=== PATIENT | female | born 1990 | race African-American/Black ===

== ENCOUNTER 2018-06-10 21:08 | Emergency (ER) | payer SELFPAY ==
[~2018-06-10] VITALS: Ht 157.5 cm; Wt 63.0 kg
--- OUTSIDE RECORDS SUMMARY | 2018-06-10 21:10 | XMS REPORT | Clinical Summary ---
Author Author [facility] Organization [facility] Address Unknown Phone Unavailable Care Team Providers Care Group Account Director Name Role Phone Abdirashid Moore MD PCP Allergies No Known Allergies Current Medications Prescription Sig. Disp. Refills Start End Date Status Date ergocalciferol (VITAMIN Take 1 capsule by mouth 12 capsule 0 02/28/20 Active D2) 50,000 unit weekly For 3 months and 18 capsuleIndications: then buy vitamin D3: Vitamin D insufficiency 2000 units and take 1 tablet/day. hydrocortisone 2.5 % Apply to eyelids prn for 20 g 11 04/09/20 Active topical creamIndications: 1 week. 18 Eczema, unspecified type triamcinolone (TRIDERM) Apply to neck and other 80 g 11 04/09/20 Active 0.1 % topical body parts except face 18 creamIndications: Rash prn for eczema. and other nonspecific skin eruption chlorhexidine (PERIDEX) Swish with 1/2 oz of 473 mL 0 05/27/20 Active 0.12 % mouth solution in mouth for 30 18 washIndications: Impacted seconds and spit. Use tooth twice daily.. acetaminophen-codeine Take 1 tablet by mouth 20 tablet 0 05/27/20 Active (TYLENOL/CODEINE #3) every 6 hours as needed 18 300-30 mg per for Pain. tabletIndications: Impacted tooth ibuprofen (MOTRIN) 600 mg Take 1 tablet by mouth 30 tablet 0 05/27/20 Active tabletIndications: every 6 hours as needed 18 Impacted tooth for Pain. amoxicillin-clavulanate Take 1 tablet by mouth 3 21 tablet 0 06/05/20 06/12/20 Active (AUGMENTIN) 500-125 mg times daily for 7 days. 18 18 per tabletIndications: Surgical follow-up care triamcinolone (TRIDERM) Apply to affected area 2 80 g 0 01/12/20 04/09/20 Discontin 0.1 % topical times daily. 18 18 ued creamIndications: Rash and other nonspecific skin eruption metroNIDAZOLE (FLAGYL) Take 1 tablet by mouth 2 14 tablet 0 05/15/20 05/22/20 500 mg tabletIndications: times daily for 7 days 18 18 BV (bacterial vaginosis) For bacterial vaginitis. terconazole (TERAZOL 7) Insert 1 applicatorful 45 g 0 05/15/20 05/22/20 0.4 % vaginal vaginally every night at 18 18 creamIndications: Yeast bedtime for 7 days for vaginitis yeast. amoxicillin (AMOXIL) 500 Take 1 capsule by mouth 3 15 capsule 0 05/27/20 06/01/20 mg capsuleIndications: times daily for 5 days. 18 18 Impacted tooth methylPREDNISolone Follow directions from 21 tablet 0 05/27/20 06/02/20 (MEDROL, IQRA,) 4 mg dose dose pack and/or 18 18 packIndications: Impacted instructions from MD. tooth Active Problems Problem Noted Date Yeast vaginitis 05/15/2018 BV (bacterial vaginosis) 05/15/2018 Overweight (BMI 25.0-29.9) 03/05/2018 Low TSH level 02/25/2018 Chronic gingivitis, plaque induced 02/20/2018 Rash and other nonspecific skin eruption 01/11/2018 Encounter for contraceptive management 01/11/2018 Blood in urine Vitamin D insufficiency Encounters Date Type Specialty Care Team Description 06/10/2018 Office Visit Oral Surgery Cruzito Tapia DDS Surgical follow-up care (Primary Dx) 06/05/2018 Office Visit Oral Surgery Cruzito Tapia DDS Surgical follow-up care (Primary Dx) 05/27/2018 Office Visit Oral Surgery Ramiro Connell DDS Encounter for dental examination (Primary Dx); Impacted tooth 05/15/2018 Office Visit Family Practice Brittaney Meza DDS Need for vaccination Nancy Herndon MD (Primary Dx); Well woman exam; Other microscopic hematuria; Overweight (BMI 25.0-29.9); Vitamin D insufficiency; Low TSH level; Yeast vaginitis; BV (bacterial vaginosis) 05/15/2018 Pharmacy Visit 04/20/2018 Telephone [facility] Nancy Thurman MD Labs Only 04/09/2018 Office Visit Dermatology Lea Still MD Eczema, unspecified type (Primary Dx); Rash and other nonspecific skin eruption 04/09/2018 Pharmacy Visit 03/11/2018 Office Visit Dentistry Brittaney Meza, DDS Chronic gingivitis, plaque induced (Primary Dx) 03/09/2018 Telephone [facility] Nancy Thurman MD Results (Needs lab appointment) 03/09/2018 Orders Only [facility] Nancy Thurman MD Low TSH level (Primary Dx) 03/05/2018 Office Visit [facility] Nancy Thurman MD Low TSH level (Primary Dx); Other microscopic hematuria; Vitamin D insufficiency; Overweight (BMI 25.0-29.9); Hematuria, unspecified type; Health care maintenance 03/05/2018 Orders Only Nancy Stearns MD Overweight (BMI 25.0-29.9) 03/05/2018 Pharmacy Visit 02/27/2018 Pharmacy Visit 02/27/2018 Telephone [facility] Nancy Thurman MD Results 02/27/2018 Orders Only [facility] Nancy Thurman MD Vitamin D insufficiency (Primary Dx); Other microscopic hematuria 02/25/2018 Telephone [facility] Nancy Thurman MD Results 02/25/2018 Orders Only [facility] Nancy Thurman MD Low TSH level (Primary Dx) 02/20/2018 Office Visit Dentistry Brittaney Meza DDS Impacted third molar tooth (Primary Dx); Chronic gingivitis 02/08/2018 Ancillary Radiology Health care maintenance Procedure 01/11/2018 Office Visit [facility] Nancy Thurman MD Health care maintenance (Primary Dx); Rash and other nonspecific skin eruption; Encounter for contraceptive management, unspecified type 01/11/2018 Pharmacy Visit after 06/09/2017 Immunizations Name Dates Previously Given Next Due Influenza, 05/15/2018 Vaccine<FLUCELVAX>(Multi- Dose) TDap (Tetanus Toxoid, 07/16/2012 Reduced Diphtheria Toxoid And Acellular Pertussis, Absorbed) Family History Medical History Relation Name Comments Psychiatry Brother Psychiatry Brother Psychiatry Brother Psychiatry Father Cancer Maternal Aunt Hypertension Mother Relation Name Status Comments Brother Alive Brother Alive Brother Alive Daughter Alive Father Alive Maternal Aunt Maternal Aunt Alive Maternal Aunt Alive Maternal Grandfather Maternal Grandmother Alive Maternal Uncle Alive Mother Alive Paternal Aunt Alive Paternal Grandfather Paternal Grandmother Alive Paternal Uncle Alive Paternal Uncle Alive Paternal Uncle Alive Paternal Uncle Sister Alive Sister Alive Sister Alive Sister Alive Sister Alive Social History Tobacco Use Types Packs/Day Years Used Date Current Some Day Smoker Smokeless Tobacco: Never Used Tobacco Cessation: Counseling Given: Yes Alcohol Use Drinks/Week oz/Week Comments No Sex Assigned at Date Recorded Not on file Last Filed Vital Signs Vital Sign Reading Time Taken Blood Pressure 119/83 06/10/2018 10:50 AM PROMOTION WRITER Pulse 60 06/10/2018 10:50 AM PROMOTION WRITER Temperature 36.6 C (97.9 F) 06/10/2018 10:50 AM PROMOTION WRITER Respiratory Rate 18 06/10/2018 10:50 AM PROMOTION WRITER Oxygen Saturation 100% 06/10/2018 10:50 AM PROMOTION WRITER Inhaled Oxygen - - Concentration Weight 63 kg (139 lb) 06/10/2018 10:50 AM PROMOTION WRITER Height 157.5 cm (5' 2") 06/10/2018 10:50 AM PROMOTION WRITER Body Mass Index 25.42 06/10/2018 10:50 AM PROMOTION WRITER Plan of Treatment Health Maintenance Due Date Last Done Comments Cervical Cancer Scrn (3 05/15/2021 05/15/2018 Yrs) IMM Influenza Seasonal Completed 05/15/2018 Oct to September (>/=19 yrs) Procedures Procedure Name Priority Date/Time Associated Diagnosis Comments URINE CULTURE Routine 05/15/2018 Other microscopic Results for this 2:00 PM CDT hematuria procedure are in the results section. TEST STAT 05/15/2018 Well woman exam Results for this 2:00 PM CDT procedure are in the results section. WET MOUNT STAT 05/15/2018 Well woman exam Results for this 1:59 PM CDT procedure are in the results section. GEE STAIN STAT 05/15/2018 Well woman exam Results for this 1:59 PM CDT procedure are in the results section. HPV HIGH-RISK Routine 05/15/2018 Well woman exam Results for this 1:58 PM CDT procedure are in the results section. BTGH CYTOLOGY Routine 05/15/2018 Results for this 12:00 AM CDT procedure are in the results section. PROLACTIN Routine 04/30/2018 Low TSH level Results for this 10:22 AM CDT procedure are in the results section. TSH Routine 04/30/2018 Low TSH level Results for this 10:22 AM CDT procedure are in the results section. ANTITHYROGLOBULIN AB Routine 03/05/2018 Low TSH level Results for this 8:38 AM CDT procedure are in the results section. TOTAL T3 Routine 03/05/2018 Low TSH level Results for this 8:38 AM CDT procedure are in the results section. THYROID PEROXIDASE (TPO) Routine 03/05/2018 Low TSH level Results for this AB 8:38 AM CDT procedure are in the results section. TSH Routine 03/05/2018 Low TSH level Results for this 8:38 AM CDT procedure are in the results section. FREE T4 Routine 03/05/2018 Low TSH level Results for this 8:38 AM CDT procedure are in the results section. FTI Routine 03/05/2018 Low TSH level Results for this 8:38 AM CDT procedure are in the results section. URINE CULTURE Routine 02/25/2018 Health care maintenance Results for this 9:34 AM CDT procedure are in the results section. UA CHEMISTRIES Routine 02/25/2018 Health care maintenance Results for this 9:33 AM CDT procedure are in the results section. VIT D, 25-HYDROXY Routine 02/25/2018 Results for this 9:32 AM CDT procedure are in the results section. LIPID PROFILE Routine 02/25/2018 Results for this 9:32 AM CDT procedure are in the results section. HEMOGLOBIN A1C Routine 02/25/2018 Results for this 9:32 AM CDT procedure are in the results section. CBC/DIFF Routine 02/25/2018 Results for this 9:32 AM CDT procedure are in the results section. BASIC METABOLIC PANEL Routine 02/25/2018 Results for this 9:32 AM CDT procedure are in the results section. LIVER PROFILE Routine 02/25/2018 Health care maintenance Results for this 9:32 AM CDT procedure are in the results section. TSH Routine 02/25/2018 Health care maintenance Results for this 9:32 AM CDT procedure are in the results section. HEPATITIS PANEL Routine 02/25/2018 Health care maintenance Results for this 9:32 AM CDT procedure are in the results section. HIV-1/HIV-2 Routine 02/25/2018 Health care maintenance Results for this DIAGNOSTIC/SYMPTOMATIC 9:32 AM CDT procedure are in the results section. U/S THYROID/NECK Routine 02/08/2018 Health care maintenance Results for this 3:46 PM CDT procedure are in the results section. after 06/09/2017 Results * TEST (05/15/2018 2:00 PM) Negative [facility] Specimen Urine Performing Organization Address [facility] Phone Number [facility] * URINE CULTURE (05/15/2018 2:00 PM) Only the most recent of 2 results within the time period is included. Spec Description Urine [facility] Order Comments None [facility] Culture Resembles mixed uro-genital BT MICROBIOLOGY tigist Report Status Final 05/17/2018 [facility] MICROBIOLOGY Specimen Urine - URINE Performing Organization Address [facility] Phone Number [facility] BT MICROBIOLOGY * WET MOUNT (05/15/2018 1:59 PM) Spec Description Cervix [facility] Order Comments None [facility] Exam Clue cells present [facility] No Trichomonas seen Many WBC's seen Report Status Final 05/15/2018 [facility] Specimen Cervix - Vaginal Performing Organization Address [facility] Phone Number [facility] * GEE STAIN (05/15/2018 1:59 PM) Spec Description Cervix [facility] Order Comments Cervix [facility] Direct Exam Hyphae seen [facility] Report Status Final 05/15/2018 [facility] Specimen Cervix - Vaginal Performing Organization Address [facility] Phone Number [facility] * HPV HIGH-RISK (05/15/2018 1:58 PM) HPV High Risk Negative NEG [facility] Comment: IMMUNOLOGY The APTIMA HPV Assay is an in vitro nucleic acid amplification test for the qualitative detection of E6/E7 viral messenger RNA (mRNA) from 14 high-risk types of human papillomavirus (HPV) in cervical specimens. The high-risk HPV types detected by the assay include: 16,18,31,33,35,39,45,51,52,56, 58,59,66, and 68. CoPath Spec Number [id number] [facility] IMMUNOLOGY Performing Organization Address [facility] Phone Number [facility] IMMUNOLOGY * [facility] CYTOLOGY (05/15/2018) [facility] Cytology (note) MISYS Name MEZA, ROQUE Date of 1990 Hospital Number [id number] Location [facility] (OP) CYTOPATHOLOGY Collected:05/15/2018 00:00 Received: 05/16/2018 09:53 FINAL DIAGNOSIS Cervicovaginal (liquid-based preparation): Satisfactory for evaluation Negative for intraepithelial lesion or malignancy Infection Fungal organisms morphologically consistent with Belkis species Electronically Signed Out By BRIDGET Clark (ASCP) Clinical History Date of Last Menstrual Period: 08/2017 Menstrual History: Pregnancies: A0 Contraceptive History: Depo-Provera: shots Specimen Received: One ThinPrep Vial Educational Note: The pap smear/test is a screening test for cervical cancer.As with screening procedures, both false negative and false positive results may occur.Hence, the results should be interpreted in the context of patient's history and current clinical information. The slide has been analyzed by the automated ThinPrep Imaging System, [employer], [place], [place]. Performing Organization Address [facility] Phone Number [employer] * TSH (04/30/2018 10:22 AM) Only the most recent of 3 results within the time period is included. TSH 0.73 0.57 - 3.74 uIU/mL BT MAIN-STATION 1 Specimen Blood Performing Organization Address [facility] Phone Number [employer] [facility] 1 * PROLACTIN (04/30/2018 10:22 AM) Prolactin 6.54 ng/mL BT MAIN-STATION 1 Comment: REFERENCE RANGE: Female: Non- 2.8 - 29.2 ng/mL 9.7 -208.5 ng/mL Postmenopausal 1.8 - 20.3 ng/mL Specimen Blood Performing Organization Address [facility] Phone Number [employer] BT MAIN-STATION 1 * THYROID PEROXIDASE (TPO) AB (03/05/2018 8:38 AM) Thy Perox (TPO) Ab 16 LABORATORY Reference range: 0 to 34 CORPORATION OF Unit: IU/mL GEENA Performing Organization Address City/[facility] Phone Number [employer] LABORATORY CORPOR[facility] OF [facility] [address] [facility] [place] [address] GEENA 145 * ANTITHYROGLOBULIN AB (03/05/2018 8:38 AM) Thyroglobulin Ab <1.0 LABORATORY Reference range: 0.0 to 0.9 CORPORATION OF Unit: IU/mL GEEAN (note) Thyroglobulin Antibody measured by Adam Kurt Methodology Specimen Blood Performing Organization Address [facility] Phone Number [facility] CORPOR[facility] OF [address] [facility] [place] [address] GEENA 145 * TOTAL T3 (03/05/2018 8:38 AM) Total T3 73 (L) 87 - 178 ng/dL BT MAIN-STATION 1 Specimen Blood Performing Organization Address [facility] Phone Number [facility] BT [facility]IN-STATION 1 * FTI (03/05/2018 8:38 AM) FTI 2.9 (L) 5.93 - 13.13 Index BT MAIN-STATION 1 T3 Uptake 42.7 32.0 - 48.4 % BT MAIN-STATION 1 Total T4 6.88 6.09 - 12.23 mcg/dL BT MAIN-STATION 1 Specimen Blood Performing Organization Address [facility] Phone Number [facility] BT MAIN-STATION 1 * FREE T4 (03/05/2018 8:38 AM) Free T4 0.82 0.61 - 1.18 ng/dl BT MAIN-STATION 1 Comment: females: 1st Trimester-0.52-1.10 ng/dL 2nd Trimester=0.45-0.99 ng/dL 3rd Trimester=0.48-0.95 ng/dL Specimen Blood Performing Organization Address [facility] Phone Number [employer] BT MAIN-STATION 1 * UA CHEMISTRIES (02/25/2018 9:33 AM) Color Straw BT MAIN-STATION 2 Clarity Clear BT MAIN-STATION 2 Spec [place] 1.004 1.001 - 1.035 BT MAIN-STATION 2 pH 6.0 5 - 8 BT MAIN-STATION 2 Protein Negative NEG BT MAIN-STATION 2 Glucose Negative NEG BT MAIN-STATION 2 Ketone Negative NEG BT MAIN-STATION 2 Bilirubin Negative NEG BT MAIN-STATION 2 Nitrate Negative NEG BT MAIN-STATION 2 Urobilinogen <1.0 0.2 - 1.0 EU/dL BT MAIN-STATION 2 Leukocyte Negative NEG BT MAIN-STATION 2 Blood 2+ (A) NEG BT MAIN-STATION 2 RBC 1 0 - 4 /HPF BT MAIN-STATION 2 WBC 1 0 - 5 /HPF BT MAIN-STATION 2 Epithelial Cell 1 /HPF BT MAIN-STATION 2 Specimen Urine Performing Organization Address [facility] Phone Number MISYS BT MAIN-STATION 2 * VIT D, 25-HYDROXY (02/25/2018 9:32 AM) Vit D, 25-Hydroxy 22.6 (L) 30 - 100 ng/mL [facility] Comment: IMMUNOLOGY Vitamin D deficiency has been defined by the [place] [employer] and Endocrine Society guideline as a level of serum 25-OH Vitamin D less than 20 ng/mL. The Endocrine Society further defines Vitamin D insufficiency as a level between 21 and 29 ng/mL and sufficiency as a level between 30 and 100 ng/mL. Performing Organization Address [facility] Phone Number MISYS BT DIAGNOSTIC IMMUNOLOGY * HEMOGLOBIN A1C (02/25/2018 9:32 AM) Hemoglobin A1c 5.3 4.3 - 6.1 % BT DI[facility] IMMUNOLOGY Est Average Gluc 105.4 mg/dL [facility] IMMUNOLOGY Performing Organization Address [facility] Phone Number MISYS BT DIAGNOSTIC IMMUNOLOGY * LIVER PROFILE (02/25/2018 9:32 AM) T Protein 7.0 6.0 - 8.3 g/dL BT MAIN-STATION 1 Albumin 4.6 3.7 - 5.3 g/dL BT MAIN-STATION 1 T Bilirubin 0.8 0.2 - 1.2 mg/dL BT MAIN-STATION 1 Alk Phos 51 34 - 104 U/L BT MAIN-STATION 1 AST 23 13 - 39 U/L BT MAIN-STATION 1 ALT 18 7 - 52 U/L BT MAIN-STATION 1 D Bilirubin 0.2 0.0 - 0.2 mg/dL BT MAIN-STATION 1 Specimen Blood Performing Organization Address [facility] Phone Number MISYS BT MAIN-STATION 1 * LIPID PROFILE (02/25/2018 9:32 AM) Cholesterol 169 mg/dL BT MAIN-STATION 1 Comment: REFERENCE RANGE: Desirable: <200 mg/dL Borderline: 200-240 mg/dL High Risk: >240 mg/dL Triglyceride 43 <150 mg/dL BT MAIN-STATION 1 Comment: REFERENCE RANGE: Normal: <150 mg/dL Borderline High: 150-199 mg/dL High: 200-499 mg/dL Very High: >uy=843 mg/dL HDL 57 mg/dL BT MAIN-STATION 1 Comment: Increased CHD risk: <40 mg/dL Decreased CHD risk: >60 mg/dL LDL 103 mg/dL BT MAIN-STATION 1 Comment: REFERENCE RANGE: Optimal: <100 mg/dL Near Optimal: 100-129 mg/dL Borderline High: 130-159 mg/dL High: 160-189 mg/dL Very High: >ba=897 mg/dL Performing Organization Address [facility] Phone Number MISYS BT MAIN-STATION 1 * HIV-1/HIV-2 DIAGNOSTIC/SYMPTOMATIC (02/25/2018 9:32 AM) HIV-1/HIV-2 Negative NEG BT MAIN-STATION 3 Specimen Blood Performing Organization Address [facility] Phone Number MISYS BT MAIN-STATION 3 * HEPATITIS PANEL (02/25/2018 9:32 AM) HCV IgG Negative NEG BT MAIN-STATION 3 HBsAg Negative NEG BT MAIN-STATION 3 HAV, IgM Negative NEG BT MAIN-STATION 3 HBcAb, IgM Negative NEG BT MAIN-STATION 3 Specimen Blood Performing Organization Address [facility] Phone Number MISYS BT MAIN-STATION 3 * CBC/DIFF (02/25/2018 9:32 AM) WBC 4.3 (L) 4.5 - 11.0 K/uL BT MAIN-STATION 2 RBC 4.40 4.20 - 5.40 M/uL BT MAIN-STATION 2 Hemoglobin 13.4 12.0 - 16.0 g/dL BT MAIN-STATION 2 Hematocrit 39.7 37.0 - 47.0 % BT MAIN-STATION 2 MCV 90 82 - 92 fL BT MAIN-STATION 2 MCH 30.5 27.0 - 32.0 pg BT MAIN-STATION 2 MCHC 33.8 32.0 - 36.0 g/dL BT MAIN-STATION 2 RDW 42.4 36.4 - 46.3 fL BT MAIN-STATION 2 Platelet 321 150 - 400 K/uL BT MAIN-STATION 2 Mean Platelet Volume 10.1 9.4 - 12.4 fL BT MAIN-STATION 2 Percent NRBC 0.0 BT MAIN-STATION 2 Absolute NRBC 0.00 BT MAIN-STATION 2 Neutrophil 53.7 34.0 - 70.0 % BT MAIN-STATION 2 Lymphocyte 32.7 20.0 - 50.0 % BT MAIN-STATION 2 Monocyte 11.1 5.0 - 12.0 % BT MAIN-STATION 2 Eosinophil 1.6 0.7 - 5.0 % BT MAIN-STATION 2 Basophil 0.9 0.1 - 1.2 % BT MAIN-STATION 2 Pct Immat Gran 0.0 0.0 - 0.5 BT MAIN-STATION 2 Neutrophil, Abs 2.33 1.56 - 6.13 K/uL BT MAIN-STATION 2 Lymphocyte, Abs 1.42 1.18 - 3.74 K/uL BT MAIN-STATION 2 Monocyte, Abs 0.48 (H) 0.24 - 0.36 K/uL BT MAIN-STATION 2 Eosinophil, Abs 0.07 0.04 - 0.36 K/uL BT MAIN-STATION 2 Basophil, Abs 0.04 0.01 - 0.08 K/uL BT MAIN-STATION 2 Absol Immat Gran 0.00 0.00 - 0.03 K/uL BT MAIN-STATION 2 Performing Organization Address [facility] Phone Number MISYS BT MAIN-STATION 2 * BASIC METABOLIC PANEL (02/25/2018 9:32 AM) CO2 29 21 - 31 mmol/L BT MAIN-STATION 1 Chloride 107 98 - 107 mmol/L BT MAIN-STATION 1 Potassium 4.4 3.5 - 5.1 mmol/L BT MAIN-STATION 1 Sodium 142 136 - 145 mmol/L BT MAIN-STATION 1 Glucose 87 70 - 110 mg/dL BT MAIN-STATION 1 Urea Nitrogen 8 7 - 25 mg/dL BT MAIN-STATION 1 Creatinine 0.80 0.6 - 1.2 mg/dL BT MAIN-STATION 1 Anion Gap 6 BT MAIN-STATION 1 Calcium 9.7 8.6 - 10.3 mg/dL BT MAIN-STATION 1 GFR, Estimated >60 mL/min/1.73 m2 BT MAIN-STATION 1 GFR, Estim, Afr-Am >60 mL/min/1.73 m2 BT MAIN-STATION 1 Performing Organization Address [facility] Phone Number MISYS BT MAIN-STATION 1 * U/S THYROID/NECK (02/08/2018 3:46 PM) Impressions Performed At IMPRESSION: SMS 1. Thyroid is normal in size and echotexture. 2. Single cyst in the left lobe as described above (thyroid RADS 1). No follow-up is needed. TI-RADS Lexicon: TR1, Benign: No FNA TR2, Not Suspicious: No FNA. TR3a (<1.5 cm): No follow-up. TR3b (1.5-2.5 cm), Mildly Suspicious: Follow at 1, 3, 5 years. TR3c (>2.5 cm), Mildly Suspicious: FNA. TR4a (<1.0 cm): No follow-up. TR4b (1.0-1.5 cm), Moderately Suspicious: Follow at 1, 2, 3, 5 years. TR4c (>1.5 cm), Moderately Suspicious: FNA. TR5a (<0.5 cm): No follow-up. TR5b (0.5-1.0 cm), Highly Suspicious: Follow at 1, 2, 3, 4, 5 years. TR5c (>1.0 cm), Highly Suspicious: FNA. *Rebiopsy if new suspicious features *No recommendation at this time for significant interval growth. Nodule Characteristics: *Benign features: cystic, hyperechoic, comet-tail artifact, complete halo *Minor suspicious features: solid, hypoechoic, other calcifications *Major suspicious features: microcalcifications, marked hypoechoic (less than strap muscle), suspicious lymph nodes, taller than wide, lobulated or ill-defined margins. Literature: ACR Thyroid Imaging, Reporting and Data System (TI-RADS): White Paper of the ACR TI-RADS Committee. J Am Luciano Radiol 2017. Dictated By: Blane Howell MD, 02/08/2018 3:50 PM I have reviewed the study and agree with the findings in this report. Signed By: Joseline Rand, 02/08/2018 4:48 PM Narrative Performed At EXAM: Thyroid Ultrasound SMS INDICATION: check if thyroid enlarged COMPARISON: None TECHNIQUE: Transverse and sagittal images were obtained of the thyroid gland. FINDINGS: Thyroid gland: Size: Right lobe 4.4 x 1.3 x 1.2 cm Left lobe 4.1 x 1.3 x 1.5 cm Isthmus 0.6 cm Appearance: Homogeneous echotexture without increased vascularity Masses/Nodules: Left lobe: 0.2 x 0.2 x 0.2 cm cyst in the inferior pole. TR1, Benign: No FNA Right lobe: No nodules. Isthmus: No nodules. Parathyroid: No focal parathyroid masses. Procedure Note Interface, Rad/Mammog In - 02/08/2018 4:54 PM CDT EXAM: Thyroid Ultrasound INDICATION: check if thyroid enlarged COMPARISON: None TECHNIQUE: Transverse and sagittal images were obtained of the thyroid gland. FINDINGS: Thyroid gland: Size: Right lobe 4.4 x 1.3 x 1.2 cm Left lobe 4.1 x 1.3 x 1.5 cm Isthmus 0.6 cm Appearance: Homogeneous echotexture without increased vascularity Masses/Nodules: Left lobe: 0.2 x 0.2 x 0.2 cm cyst in the inferior pole. TR1, Benign: No FNA Right lobe: No nodules. Isthmus: No nodules. Parathyroid: No focal parathyroid masses. IMPRESSION IMPRESSION: 1. Thyroid is normal in size and echotexture. 2. Single cyst in the left lobe as described above (thyroid RADS 1). No follow-up is needed. TI-RADS Lexicon: TR1, Benign: No FNA TR2, Not Suspicious: No FNA. TR3a (<1.5 cm): No follow-up. TR3b (1.5-2.5 cm), Mildly Suspicious: Follow at 1, 3, 5 years. TR3c (>2.5 cm), Mildly Suspicious: FNA. TR4a (<1.0 cm): No follow-up. TR4b (1.0-1.5 cm), Moderately Suspicious: Follow at 1, 2, 3, 5 years. TR4c (>1.5 cm), Moderately Suspicious: FNA. TR5a (<0.5 cm): No follow-up. TR5b (0.5-1.0 cm), Highly Suspicious: Follow at 1, 2, 3, 4, 5 years. TR5c (>1.0 cm), Highly Suspicious: FNA. *Rebiopsy if new suspicious features *No recommendation at this time for significant interval growth. Nodule Characteristics: * Benign features: cystic, hyperechoic, comet-tail artifact, complete halo * Minor suspicious features: solid, hypoechoic, other calcifications * Major suspicious features: microcalcifications, marked hypoechoic (less than strap muscle), suspicious lymph nodes, taller than wide, lobulated or ill-defined margins. Literature: ACR Thyroid Imaging, Reporting and Data System (TI-RADS): White Paper of the ACR TI-RADS Committee. J Am Luciano Radiol 2017. Dictated By: Blane Howell MD, 02/08/2018 3:50 PM I have reviewed the study and agree with the findings in this report. Signed By: Joseline Rand, 02/08/2018 4:48 PM Performing Organization Address City/State/Zipcode Phone Number SMS after 06/09/2017
--- OUTSIDE RECORDS SUMMARY | 2018-06-10 21:11 | XMS REPORT | CCD ---
Author Author Auto Generated Organization [facility] Address Unknown Phone Unavailable Care Team Providers Care Nephrology Nurse Name Role Phone [place] CP Allergies, Adverse Reactions, Alerts Substance Reaction Status NKDA Active Medications Medication Instructions Start Date End Date Status nalbuphine 2 mg, Route: IVP, Q2H, Dosing 05/07/2013 05/07/2013 Deleted Weight 72.727, kg, PRN Itching, Start date: 05/07/13 5:15:00, Duration: 5 doses or times, Stop date: Limited # of times FENTanyl Infuse via: [facility], Route: 05/07/2013 05/09/2013 Discontinued 2mcg/ml+Ropivacaine EPIDURAL, Start date: 05/07/13 0.2% Epidural 100 mL 5:15:00 100 mL, Drug Form: INJ, Duration: 30 day, Stop date: 06/06/13 5:14:00Same as Sublimaze-Naropin Cervidil 10 mg, 1 supp, Route: VAG, Drug 05/06/2013 05/06/2013 Completed form: INS, ONCE, Start date: 05/06/13 14:18:00, Stop date: 05/06/13 14:18:00(Same as: Cervidil) Cytotec 100 microgram, 1 tab, Route: PO, 05/06/2013 05/09/2013 Discontinued Drug form: TAB, Q4H, Start date: 05/06/13 12:00:00, Duration: 30 day, Stop date: 06/05/13 8:00:00(Same as:Cytotec) Take with food Lactated Ringers 20 unit, 1,000 mL, Route: IV, Drug 05/07/2013 05/09/2013 Completed 1000ml+Oxytocin 20 form: INJ, Dosing Weight 72.727, units IV (Premix) 20 kg, Start date: 05/07/13 5:26:00, unit Duration: 2 day, Stop date: 05/09/13 5:25:00Conc=0.02unit/ml=20milliunit /ml ibuprofen 600 mg 600 mg, 1 tab, PO, Q6H, PRN, 30 05/08/2013 Ordered oral tablet tab, Pain Score 1-5, Substitution Allowed, TAB influenza virus 0.5 mL, Route: IM, Drug Form: SUSP, 05/07/2013 05/09/2013 Completed vaccine, inactivated ONCALL, Start date: 05/07/13 9:59:16, Stop date: 06/06/13 9:54:16(Same as: Fluzone) acetaminophen-hydroc 2 tab, Route: PO, Drug Form: TAB, 05/07/2013 05/09/2013 Discontinued odone 325 mg-5 mg Dosing Weight 72.727, kg, Q4H, PRN oral tablet Pain Score 4-6, Start date: 05/07/13 8:29:00, Duration: 30 day, Stop date: 06/06/13 8:28:00(Same as: [place] 325/5) Do not exceed 4gm/day of acetaminophen. acetaminophen-hydroc 1 tab, Route: PO, Drug Form: TAB, 05/07/2013 05/09/2013 Discontinued odone 325 mg-5 mg Dosing Weight 72.727, kg, Q4H, PRN oral tablet Pain Score 1-3, Start date: 05/07/13 8:29:00, Duration: 30 day, Stop date: 06/06/13 8:28:00(Same as: [place] 325/5) Do not exceed 4gm/day of acetaminophen. acetaminophen 650 mg, 2 tab, Route: PO, Drug 05/07/2013 05/09/2013 Discontinued form: TAB, Q4H, Dosing Weight 72.727, kg, PRN Headache 1-3, Start date: 05/07/13 8:29:00, Duration: 30 day, Stop date: 06/06/13 8:28:00Do not exceed 4 gm/day. (Same as: Tylenol) ibuprofen 800 mg, 2 tab, Route: PO, Drug 05/07/2013 05/09/2013 Discontinued form: TAB, Q8H, Dosing Weight 72.727, kg, PRN Pain Score 6-10, Start date: 05/07/13 8:29:00, Duration: 30 day, Stop date: 06/06/13 8:28:00(Same as: Motrin)"Do Not Crush" Give with food. ondansetron 4 mg, 2 mL, Route: IVP, Drug form: 05/07/2013 05/09/2013 Discontinued INJ, Q8H, Dosing Weight 72.727, kg, PRN Nausea & Vomiting, Start date: 05/07/13 8:29:00, Duration: 30 day, Stop date: 06/06/13 8:28:00(Same as: Zofran) docusate 100 mg, 1 cap, Route: PO, Drug 05/07/2013 05/09/2013 Discontinued form: CAP, BID, Dosing Weight 72.727, kg, PRN Constipation, Start date: 05/07/13 8:29:00, Duration: 30 day, Stop date: 06/06/13 8:28:00(Same as: Colace) (Do Not Crush) zolpidem 5 mg, 1 tab, Route: PO, Drug form: 05/07/2013 05/09/2013 Discontinued TAB, Bedtime, Dosing Weight 72.727, kg, PRN Sleep, Start date: 05/07/13 8:29:00, Duration: 30 day, Stop date: 06/06/13 8:28:00(Same As: Ambien) lanolin topical 1 appl, Route: TOP, PRN, Drug form: 05/07/2013 05/09/2013 Discontinued OINT, PRN Other -See Comment, Start date: 05/07/13 8:29:00, Duration: 30 day, Stop date: 06/06/13 7:28:00(Same as:Lanolin) Dermoplast 20% 1 spray, Route: TOP, PRN, Drug 05/07/2013 05/09/2013 Discontinued topical spray form: SPRY, PRN Irritation, Start date: 05/07/13 8:29:00, Duration: 30 day, Stop date: 06/06/13 7:28:00(Same As: Dermoplast) bisacodyl 10 mg, 1 supp, Route: NE, Drug 05/07/2013 05/09/2013 Discontinued form: SUPP, PRN, Dosing Weight 72.727, kg, PRN Other -See Comment, Start date: 05/07/13 8:29:00, Duration: 30 day, Stop date: 06/06/13 7:28:00(Same As: Dulcolax, Bisco-Lax) bisacodyl 15 mg, 3 tab, Route: PO, Drug form: 05/07/2013 05/09/2013 Discontinued ECTAB, Daily, Dosing Weight 72.727, kg, PRN Other -See Comment, Start date: 05/07/13 8:29:00, Duration: 30 day, Stop date: 06/06/13 8:28:00(Same As: Dulcolax, Correctol) (Do Not Crush) "Do Not Crush" M-M-R II 0.5 mL, Route: SUB-Q, Drug Form: 05/07/2013 05/09/2013 Discontinued PDR/INJ, Dosing Weight 72.727, kg, ONCALL, Give only if patient rubella non-immune, Start date: 05/07/13 9:00:00, Duration: 1 doses or times(Same as: M-M-R II) (qrzxitf-ikwok-vyyxfnk virus vaccine 0.5 ml INJ VL) GIVE PRIOR TO DISCHARGE methylergonovine 0.2 mg, 1 mL, Route: IM, Drug form: 05/07/2013 05/09/2013 Discontinued INJ, PRN, Dosing Weight 72.727, kg, PRN Other -See Comment, Start date: 05/07/13 8:29:00, Duration: 30 day, Stop date: 06/06/13 7:28:00(Same as:Methergine) Lactated Ringers IV 1,000 mL, Rate: 100 ml/hr, Infuse 05/07/2013 05/09/2013 Discontinued 1,000 mL over: 10 hr, Route: IV, Dosing Weight 72.727 kg, Total Volume: 1,000, Start date: 05/07/13 8:29:00, Duration: 30 day, Stop date: 06/06/13 8:28:00 Lactated Ringers 20 unit, 1,000 mL, Rate: 125 ml/hr, 05/07/2013 05/09/2013 Completed 1000ml+Pitocin 20 Infuse over: 8 hr, Dosing Weight units IV (Premix) 20 72.727, kg, Route: IV, Total unit Volume: 1,000 mL, Start date: 05/07/13 8:29:00, Duration: 2 day, Stop date: 05/09/13 8:28:00, Replace Every: 8 hrConc=0.02unit/ml=20milliunit/ml 1 tab, Route: PO, Drug Form: TAB, 05/07/2013 05/09/2013 Discontinued Multivitamins oral Dosing Weight 72.727, kg, Daily, tablet Start date: 05/07/13 9:00:00, Duration: 30 day, Stop date: 06/05/13 9:00:00 ibuprofen 600 mg, 1 tab, Route: PO, Drug 05/07/2013 05/09/2013 Discontinued form: TAB, Q6H, Dosing Weight 72.727, kg, PRN Pain Score 1-5, Start date: 05/07/13 8:29:00, Duration: 30 day, Stop date: 06/06/13 8:28:00(Same as: Motrin)"Do Not Crush" Take with food. misoprostol 1,000 microgram, 5 tab, Route: NE, 05/06/2013 05/07/2013 Discontinued Drug form: TAB, ONCALL, Dosing Weight 72.727, kg, Start date: 05/06/13 8:00:00, Duration: 1 doses or times(Same as:Cytotec) Take with food famotidine 20 mg, 2 mL, Route: IVP, Drug form: 05/06/2013 05/07/2013 Discontinued INJ, ONCALL, Dosing Weight 72.727, kg, Start date: 05/06/13 8:00:00, Duration: 30 day, Stop date: 06/05/13 6:59:00(Same as: Pepcid)Can be dilute in 5-10cc NS IVP: Slow IV push over at least 2 minutes. carboprost 250 microgram, 1 mL, Route: IM, 05/06/2013 05/07/2013 Discontinued Drug form: INJ, ONCALL, Dosing Weight 72.727, kg, Start date: 05/06/13 8:00:00, Duration: 30 day, Stop date: 06/05/13 6:59:00(Same As: Hemabate) oxytocin-add to 20 unit, 2 mL, Route: INJ, Drug 05/06/2013 05/07/2013 Discontinued current IV form: SOLN, ONCALL, Dosing Weight 72.727, kg, Start date: 05/06/13 8:00:00, Duration: 2 day, Stop date: 05/08/13 7:59:00(Same as: Pitocin) terbutaline 0.25 mg, 0.25 mL, Route: SUB-Q, 05/06/2013 05/07/2013 Discontinued Drug form: INJ, PRN, Dosing Weight 72.727, kg, PRN Other -See Comment, Start date: 05/06/13 7:48:00, Duration: 1 doses or times, Stop date: Limited # of timesDO NOT USE IN MANAGING JEWELER AREA(Same As: Brethine) citric acid-sodium 30 mL, Route: PO, Drug Form: SOLN, 05/06/2013 05/07/2013 Discontinued citrate Dosing Weight 72.727, kg, ONCALL, Start date: 05/06/13 8:00:00, Duration: 30 day, Stop date: 06/05/13 6:59:00(Same As: Bicitra) methylergonovine 0.2 mg, 1 mL, Route: IM, Drug form: 05/06/2013 05/07/2013 Discontinued INJ, ONCALL, Dosing Weight 72.727, kg, Start date: 05/06/13 8:00:00, Duration: 30 day, Stop date: 06/05/13 6:59:00(Same as:Methergine) lidocaine 1% 20 mL, Route: PERCUT, Drug Form: 05/06/2013 05/07/2013 Discontinued INJ, Dosing Weight 72.727, kg, PRN, PRN Other -See Comment, Start date: 05/06/13 7:48:00, Duration: 1 doses or times, Stop date: Limited # of times(Same as: Xylocaine) butorphanol 1 mg, 1 mL, Route: IVP, Drug form: 05/06/2013 05/07/2013 Discontinued INJ, Q2H, Dosing Weight 72.727, kg, PRN Pain Score 1-5, Start date: 05/06/13 7:48:00, Duration: 30 day, Stop date: 06/05/13 7:47:00(Same As: Stadol) butorphanol 2 mg, 1 mL, Route: IVP, Drug form: 05/06/2013 05/07/2013 Discontinued INJ, Q2H, Dosing Weight 72.727, kg, PRN Pain Score 6-10, Start date: 05/06/13 7:48:00, Duration: 30 day, Stop date: 06/05/13 7:47:00(Same As: Stadol) ondansetron 4 mg, 2 mL, Route: IVP, Drug form: 05/06/2013 05/07/2013 Discontinued INJ, Q8H, Dosing Weight 72.727, kg, PRN Nausea & Vomiting, Start date: 05/06/13 7:48:00, Duration: 30 day, Stop date: 06/05/13 7:47:00(Same as: Zofran) Lactated Ringers 20 unit, 1,000 mL, Rate: 125 ml/hr, 05/06/2013 05/07/2013 Discontinued 1000ml+Pitocin 20 Infuse over: 8 hr, Dosing Weight units IV (Premix) 20 72.727, kg, Route: IV, Total unit Volume: 1,000 mL, Start date: 05/06/13 7:48:00, Duration: 2 day, Stop date: 05/08/13 7:47:00, Replace Every: 8 hrConc=0.02unit/ml=20milliunit/ml Lactated Ringers 1,000 mL, Rate: 100 ml/hr, Infuse 05/06/2013 05/07/2013 Discontinued Injection IV 1,000 over: 10 hr, Route: IV, Dosing mL Weight 72.727 kg, Total Volume: 1,000, Bolus for regional anesthesia per unit protocol, Start date: 05/06/13 7:48:00, Duration: 30 day, Stop date: 06/05/13 7:47:00 Lactated Ringers IV 1,000 mL, Rate: 125 ml/hr, Infuse 05/06/2013 05/07/2013 Discontinued 1,000 mL over: 8 hr, Route: IV, Dosing Weight 72.727 kg, Total Volume: 1,000, Start date: 05/06/13 7:48:00, Duration: 30 day, Stop date: 06/05/13 7:47:00 lidocaine 1% 0.25 mL, Route: INTRADERM, Drug 05/06/2013 05/07/2013 Discontinued injectable solution Form: INJ, Dosing Weight 72.727, kg, PRN, PRN Other -See Comment, Start date: 05/06/13 7:48:00, Duration: 30 day, Stop date: 06/05/13 6:47:00Preservative free. (Same as: Xylocaine MPF) 1 oral 1 cap, PO, Daily, Substitution 05/06/2013 Ordered capsule Allowed, Maintenance Ambien 10 mg, 2 tab, Route: PO, Drug form: 05/06/2013 05/07/2013 Discontinued TAB, Bedtime, PRN Sleep, Start date: 05/06/13 15:11:00, Duration: 30 day, Stop date: 06/05/13 15:10:00(Same As: Ambien) Immunizations Vaccine Date Status influenza virus vaccine, inactivated 05/09/2013 Auth (Verified) Vital Signs Most recent to oldest [Reference Range]: 1 Height 157.48 cm (05/06/2013 07:47:00) Weight 72.727 kg (05/06/2013 07:47:00) Results BLOOD BANK RESULTS Most recent to oldest [Reference Range]: 1 2 ABO/Rh O POS *Unknown* (05/06/2013 07:15:00) Antibody Scrn Negative (05/06/2013 07:15:00) Rhig Reqd See Note 1 (05/06/2013 07:15:00) 1Result Comment: 05/06/2013 08:54 VIHOWE This patient is not a candidate for Rh(O)D immune globulin. CHEMISTRY Most recent to oldest [Reference Range]: 1 2 U Amph Scr [Negative] Negative *NA* (05/06/2013 07:26:13) U Basilia Scr [Negative] Negative *NA* (05/06/2013 07:26:13) U Benzodia Scr [Negative] Negative *NA* (05/06/2013 07:26:13) U Cocaine Scr [Negative] Negative *NA* (05/06/2013 07:26:13) U Opiate Scr [Negative] Negative *NA* (05/06/2013 07:26:13) U Phencyc Scr [Negative] Negative *NA* (05/06/2013 07:26:13) U Cannab Scr [Negative] Negative *NA* (05/06/2013 07:26:13) UDS Note See Note 2 *NA* (05/06/2013 07:26:13) 2Interpretive Data: Drugs reported as positive have not been confirmed by a second method and should be used for medical purposes only. To order confirmation, contact laboratory. note: Below are cut-off concentrations for all urine drugs of abuse performed in the laboratory. Some drugs listed in the table may not be included in this panel. Description Cut-off concentration Amphetamine 1000 ng/mL Barbiturates 200 ng/mL Benzodiazepines 300 ng/mL Cocaine metabolites 300 ng/mL Opiates 300 ng/mL Phencyclidine 25 ng/mL Propoxyphene 300 ng/mL Marijuana metabolites 50 ng/mL Methadone 300 ng/mL Urine alcohol 20 mg/dL HEMATOLOGY Most recent to oldest [Reference Range]: 1 2 WBC [3.7-10.4 K/CMM] 9.5 K/CMM (05/06/2013 07:15:00) RBC [4.20-5.40 M/CMM] 3.98 M/CMM *LOW* (05/06/2013 07:15:00) Hgb [12.0-16.0 g/dL] 10.1 g/dL *LOW* (05/08/2013 04:40:17) 11.6 g/dL *LOW* (05/06/2013 07:15:00) Hct [36.0-48.0 %] 30.8 % *LOW* (05/08/2013 04:40:17) 33.7 % *LOW* (05/06/2013 07:15:00) MCV [81.0-99.0 fL] 84.6 fL (05/06/2013 07:15:00) MCH [27.0-31.0 pg] 29.3 pg (05/06/2013 07:15:00) MCHC [32.0-36.0 g/dL] 34.6 g/dL (05/06/2013 07:15:00) RDW [11.5-14.5 %] 14.3 % (05/06/2013 07:15:00) Platelet [133-450 K/CMM] 256 K/CMM (05/06/2013 07:15:00) MPV [7.4-10.4 fL] 8.5 fL (05/06/2013 07:15:00) Segs [45.0-75.0 %] 69.9 % (05/06/2013 07:15:00) Lymphocytes [20.0-40.0 %] 15.8 % *LOW* (05/06/2013 07:15:00) Monocytes [2.0-12.0 %] 12.4 % *HI* (05/06/2013 07:15:00) Eosinophils [0.0-4.0 %] 1.4 % (05/06/2013 07:15:00) Basophils [0.0-1.0 %] 0.5 % (05/06/2013 07:15:00) Segs-Bands # [1.5-8.1 K/CMM] 6.6 K/CMM (05/06/2013 07:15:00) Lymphocytes # [1.0-5.5 K/CMM] 1.5 K/CMM (05/06/2013 07:15:00) Monocytes # [0.0-0.8 K/CMM] 1.2 K/CMM *HI* (05/06/2013 07:15:00) Eosinophils # [0.0-0.5 K/CMM] 0.1 K/CMM (05/06/2013 07:15:00) Basophils # [0.0-0.2 K/CMM] 0.0 K/CMM (05/06/2013 07:15:00) IMMUNOLOGY Most recent to oldest [Reference Range]: 1 2 Treponemal Scr [Non Reactive] Non Reactive *NA* (05/06/2013 07:15:00) Hep Bs Ag [Negative] Negative *NA* (05/06/2013 07:15:00)
--- OUTSIDE RECORDS SUMMARY | 2018-06-10 21:11 | XMS REPORT | Continuity of Care Document ---
Author Author [facility] Interface Address Unknown Phone Unavailable Problems Problem Status Onset Date Classification Date Reported Comments Source Yeast vaginitis Active 05/15/2018 Problem 06/05/2018 [facility] BV Active 05/15/2018 Problem 06/05/2018 [facility] Overweight Active 03/05/2018 Problem 06/05/2018 [facility] Low TSH level Active 02/25/2018 Problem 06/05/2018 [facility] Chronic gingivitis, plaque induced Active 02/20/2018 Problem 06/05/2018 [facility] Rash and other nonspecific skin eruption Active 01/11/2018 Problem 06/05/2018 [facility] Encounter for contraceptive management Active 01/11/2018 Problem 06/05/2018 [facility] [address]ARY ST Active 10/01/2013 [facility] Discharge Diagnosis: UTI 09/18/2013 09/21/2013 [facility] UTI Active 09/18/2013 [facility] 40WKS GESTATION, INDUCTION Active 08/04/2012 [facility] VAGINAL DELIVERY/39 WEEKS Active 08/04/2012 [facility] Blood in urine Active Problem 06/05/2018 [facility] Vitamin D insufficiency Active Problem 06/05/2018 [facility] NORMAL DELIVERY Active [facility] Medications Medication Details Route Status Patient Instructions Ordering Provider Order Date Source Chlorhexidine Gluconate 0.12 % Mouthwash Peridex 0.12 % Mouthwash Swish with 1/2 oz of solution in mouth for 30 seconds and spit. Use twice daily.. Active 05/27/2018 [facility] Amoxicillin 500 Mg Capsule Take 1 capsule by mouth 3 times daily for 5 days. Oral No Longer Active 05/27/2018 [facility] Acetaminophen 300 Mg-Codeine 30 Mg Tablet Tylenol-Codeine #3 300 Mg-30 Mg Tablet Take 1 tablet by mouth every 6 hours as needed for Pain. Oral Active 05/27/2018 [facility] Ibuprofen 600 Mg Tablet Take 1 tablet by mouth every 6 hours as needed for Pain. Oral Active 05/27/2018 [facility] Methylprednisolone 4 Mg Tablets In A Dose Pack Medrol (Yoan) 4 Mg Tablets In A Dose Pack Follow directions from dose pack and/or instructions from . No Longer Active 05/27/2018 [facility] Metronidazole 500 Mg Tablet Flagyl 500 Mg Tablet Take 1 tablet by mouth 2 times daily for 7 days For bacterial vaginitis. Oral No Longer Active 05/15/2018 [facility] Terconazole 0.4 % Vaginal Cream Terazol 7 0.4 % Vaginal Cream Insert 1 applicatorful vaginally every night at bedtime for 7 days for yeast. No Longer Active 05/15/2018 [facility] Hydrocortisone 2.5 % Topical Cream Apply to eyelids prn for 1 week. Active 04/09/2018 [facility] Triamcinolone Acetonide 0.1 % Topical Cream Triderm 0.1 % Topical Cream Apply to neck and other body parts except face prn for eczema. Active 04/09/2018 [facility] Ergocalciferol (Vitamin D2) 50,000 Unit Capsule Take 1 capsule by mouth weekly For 3 months and then buy vitamin D3: 2000 units and take 1 tablet/day. Oral Active 02/27/2018 [facility] Triamcinolone Acetonide 0.1 % Topical Cream Triderm 0.1 % Topical Cream Apply to affected area 2 times daily. Topical No Longer Active 01/11/2018 [facility] Phenazopyridine hydrochloride 200 MG Oral Tablet [Pyridium] 200 mg=1 tab, PO, TID, # 9 tab, 0 Refill(s) Active 09/18/2013 [facility] Nitrofurantoin 100 MG Oral Capsule [Macrobid] 100 mg=1 cap, PO, BID, # 14 cap, 0 Refill(s) Active 09/18/2013 [facility] ibuprofen 600 mg oral tablet 600 mg, 1 tab, PO, Q6H, PRN, 30 tab, Pain Score 1-5, Substitution Allowed, TAB Active [facility] 05/08/2013 [facility] influenza virus vaccine, inactivated 0.5 mL, Route: IM, Drug Form: SUSP, ONCALL, Start date: 05/07/13 9:59:16, Stop date: 06/06/13 9:54:16(Same as: Fluzone) No Longer Active [facility] 05/07/2013 [facility] M-M-R II 0.5 mL, Route: SUB-Q, Drug Form: PDR/INJ, Dosing Weight 72.727, kg, ONCALL, Give only if patient rubella non-immune, Start date: 05/07/13 9:00:00, Duration: 1 doses or times(Same as: -M-R II) (measles -mumps-rubella virus vaccine 0.5 ml INJ VL) GIVE PRIOR TO DISCHARGE No Longer Active [facility] 05/07/2013 [facility] Multivitamins oral tablet 1 tab, Route: PO, Drug Form: TAB, Dosing Weight 72.727, kg, Daily, Start date: 05/07/13 9:00:00, Duration: 30 day, Stop date: 06/05/13 9:00:00 No Longer Active [facility] 05/07/2013 [facility] acetaminophen-hydrocodone 325 mg-5 mg oral tablet 2 tab, Route: PO, Drug Form: TAB, Dosing Weight 72.727, kg, Q4H, PRN Pain Score 4-6, Start date: 05/07/13 8:29:00, Duration: 30 day, Stop date: 06/06/13 8:28:00(Same as: [place] 325/5) Do not exceed 4gm/day of acetaminophen. No Longer Active [facility] 05/07/2013 [facility] acetaminophen 650 mg, 2 tab, Route: PO, Drug form: TAB, Q4H, Dosing Weight 72.727, kg, PRN Headache 1-3, Start date: 05/07/13 8:29:00, Duration: 30 day, Stop date: 06/06/13 8:28:00Do not exceed 4 gm/day. (Same as: Tylenol) No Longer Active [facility] 05/07/2013 [facility] ibuprofen 800 mg, 2 tab, Route: PO, Drug form: TAB, Q8H, Dosing Weight 72.727, kg, PRN Pain Score 6-10, Start date: 05/07/13 8:29:00, Duration: 30 day, Stop date: 06/06/13 8:28:00(Same as: Motrin) "Do Not Crush" Give with food. No Longer Active [facility] 05/07/2013 [facility] ondansetron 4 mg, 2 mL, Route: IVP, Drug form: INJ, Q8H, Dosing Weight 72.727, kg, PRN Nausea & Vomiting, Start date: 05/07/13 8:29:00, Duration: 30 day, Stop date: 06/06/13 8:28:00(Same as: Zofran) No Longer Active [facility] 05/07/2013 [facility] docusate 100 mg, 1 cap, Route: PO, Drug form: CAP, BID, Dosing Weight 72.727, kg, PRN Constipation, Start date: 05/07/13 8:29:00, Duration: 30 day, Stop date: 06/06/13 8:28:00(Same as: Colace) (Do Not Crush) No Longer Active [facility] 05/07/2013 [facility] zolpidem 5 mg, 1 tab, Route: PO, Drug form: TAB, Bedtime, Dosing Weight 72.727, kg, PRN Sleep, Start date: 05/07/13 8:29:00, Duration: 30 day, Stop date: 06/06/13 8:28:00(Same As: Ambien) [facility] lanolin topical 1 appl, Route: TOP, PRN, Drug form: OINT, PRN Other -See Comment, Start date: 05/07/13 8:29:00, Duration: 30 day, Stop date: 06/06/13 7:28:00(Same as:Lanolin) No Longer Active [facility] 05/07/2013 [facility] Dermoplast 20% topical spray 1 spray, Route: TOP, PRN, Drug form: SPRY, PRN Irritation, Start date: 05/07/13 8:29:00, Duration: 30 day, Stop date: 06/06/13 7:28:00(Same As: Dermoplast) No Longer Active [facility] 05/07/2013 [facility] bisacodyl 10 mg, 1 supp, Route: [place], Drug form: SUPP, PRN, Dosing Weight 72.727, kg, PRN Other -See Comment, Start date: 05/07/13 8:29:00, Duration: 30 day, Stop date: 06/06/13 7:28:00(Same As: Dulcolax, [place]isco-Lax) No Longer Active [facility] 05/07/2013 [facility] methylergonovine 0.2 mg, 1 mL, Route: IM, Drug form: INJ, PRN, Dosing Weight 72.727, kg, PRN Other -See Comment, Start date: 05/07/13 8:29:00, Duration: 30 day, Stop date: 06/06/13 7:28:00(Same as:Methergine) No Longer Active [facility] 05/07/2013 [facility] Lactated Ringers IV 1,000 mL 1,000 mL, Rate: 100 ml/hr, Infuse over: 10 hr, Route: IV, Dosing Weight 72.727 kg, Total Volume: 1,000, Start date: 05/07/13 8:29:00, Duration: 30 day, Stop date: 06/06/13 8:28:00 No Longer Active [facility] 05/07/2013 [facility] Lactated Ringers 1000ml+Pitocin 20 units IV (Premix) 20 unit 20 unit, 1,000 mL, Rate: 125 ml/hr, Infuse over: 8 hr, Dosing Weight 72.727, kg, Route: IV, Total Volume: 1,000 mL, Start date: 05/07/13 8:29:00, Duration: 2 day, Stop date: 05/09/13 8:28:00, Replace Every: 8 hrConc=0.02unit/ml=20milliunit/ml No Longer Active [facility] 05/07/2013 [facility] Lactated Ringers 1000ml+Oxytocin 20 units IV (Premix) 20 unit 20 unit, 1,000 mL, Route: IV, Drug form: INJ, Dosing Weight 72.727, kg, Start date: 05/07/13 5:26:00, Duration: 2 day, Stop date: 05/09/13 5:25:00Conc=0.02unit/ml=20milliunit/ml No Longer Active [facility] 05/07/2013 [facility] nalbuphine 2 mg, Route: IVP, Q2H, Dosing Weight 72.727, kg, PRN Itching, Start date: 05/07/13 5:15:00, Duration: 5 doses or times, Stop date: Limited # of times Inactive [facility] 05/07/2013 [facility] FENTanyl 2mcg/ml+Ropivacaine 0.2% Epidural 100 mL Infuse via: Regional, Route: EPIDURAL, Start date: 05/07/13 5:15:00 100 mL, Drug Form: INJ, Duration: 30 day, Stop date: 06/06/13 5:14:00Same as Sublimaze-Naropin No Longer Active [facility] 05/07/2013 [facility] Ambien 10 mg, 2 tab, Route: PO, Drug form: TAB, Bedtime, PRN Sleep, Start date: 05/06/13 15:11:00, Duration: 30 day, Stop date: 06/05/13 15:10:00(Same As: Ambien) No Longer Active [facility] 05/06/2013 [facility] Cervidil 10 mg, 1 supp, Route: VAG, Drug form: INS, ONCE, Start date: 05/06/13 14:18:00, Stop date: 05/06/13 14:18:00(Same as: Cervidil) Inactive [facility] 05/06/2013 [facility] Cytotec 100 microgram, 1 tab, Route: PO, Drug form: TAB, Q4H, Start date: 05/06/13 12:00:00, Duration: 30 day, Stop date: 06/05/13 8:00:00(Same as:Cytotec) Take with food No Longer Active [facility] 05/06/2013 [facility] misoprostol 1,000 microgram, 5 tab, Route: [place], Drug form: TAB, ONCALL, Dosing Weight 72.727, kg, Start date: 05/06/13 8:00:00, Duration: 1 doses or times(Same as:Cytotec) Take with food No Longer Active [facility] 05/06/2013 [facility] famotidine 20 mg, 2 mL, Route: IVP, Drug form: INJ, ONCALL, Dosing Weight 72.727, kg, Start date: 05/06/13 8:00:00, Duration: 30 day, Stop date: 06/05/13 6:59:00(Same as: Pepcid) Can be dilute in 5-10cc NS IVP: Slow IV push over at least 2 minutes. No Longer Active [facility] 05/06/2013 [facility] carboprost 250 microgram, 1 mL, Route: IM, Drug form: INJ, ONCALL, Dosing Weight 72.727, kg, Start date: 05/06/13 8:00:00, Duration: 30 day, Stop date: 06/05/13 6:59:00(Same As: Hemabate) No Longer Active [facility] 05/06/2013 [facility] oxytocin-add to current IV 20 unit, 2 mL, Route: INJ, Drug form: SOLN, ONCALL, Dosing Weight 72.727, kg, Start date: 05/06/13 8:00:00, Duration: 2 day, Stop date: 05/08/13 7:59:00(Same as: Pitocin) No Longer Active [facility] 05/06/2013 [facility] citric acid-sodium citrate 30 mL, Route: PO, Drug Form: SOLN, Dosing Weight 72.727, kg, ONCALL, Start date: 05/06/13 8:00:00, Duration: 30 day, Stop date: 06/05/13 6:59:00(Same As: Bicitra) No Longer Active [facility] 05/06/2013 [facility] methylergonovine 0.2 mg, 1 mL, Route: IM, Drug form: INJ, ONCALL, Dosing Weight 72.727, kg, Start date: 05/06/13 8:00:00, Duration: 30 day, Stop date: 06/05/13 6:59:00(Same as:Methergine) No Longer Active [facility] 05/06/2013 [facility] 1 oral capsule 1 cap, PO, Daily, Substitution Allowed, Maintenance Active 05/06/2013 [facility] terbutaline 0.25 mg, 0.25 mL, Route: SUB-Q, Drug form: INJ, PRN, Dosing Weight 72.727, kg, PRN Other -See Comment, Start date: 05/06/13 7:48:00, Duration: 1 doses or times, Stop date: Limited # of timesDO NOT USE IN PROJECTOR OPERATOR AREA (Same As: Brethine) No Longer Active [facility] 05/06/2013 [facility] lidocaine 1% 20 mL, Route: PERCUT, Drug Form: INJ, Dosing Weight 72.727, kg, PRN, PRN Other -See Comment, Start date: 05/06/13 7:48:00, Duration: 1 doses or times, Stop date: Limited # of times(Same as: Xylocaine) No Longer Active [facility] 05/06/2013 [facility] butorphanol 1 mg, 1 mL, Route: IVP, Drug form: INJ, Q2H, Dosing Weight 72.727, kg, PRN Pain Score 1-5, Start date: 05/06/13 7:48:00, Duration: 30 day, Stop date: 06/05/13 7:47:00(Same As: Stadol) No Longer Active [facility] 05/06/2013 [facility] ondansetron 4 mg, 2 mL, Route: IVP, Drug form: INJ, Q8H, Dosing Weight 72.727, kg, PRN Nausea & Vomiting, Start date: 05/06/13 7:48:00, Duration: 30 day, Stop date: 06/05/13 7:47:00(Same as: Zofran) No Longer Active [facility] 05/06/2013 [facility] Lactated Ringers 1000ml+Pitocin 20 units IV (Premix) 20 unit 20 unit, 1,000 mL, Rate: 125 ml/hr, Infuse over: 8 hr, Dosing Weight 72.727, kg, Route: IV, Total Volume: 1,000 mL, Start date: 05/06/13 7:48:00, Duration: 2 day, Stop date: 05/08/13 7:47:00, Replace Every: 8 hrConc=0.02unit/ml=20milliunit/ml No Longer Active [facility] 05/06/2013 [facility] Lactated Ringers Injection IV 1,000 mL 1,000 mL, Rate: 100 ml/hr, Infuse over: 10 hr, Route: IV, Dosing Weight 72.727 kg, Total Volume: 1,000, Bolus for regional anesthesia per unit protocol, Start date: 05/06/13 7:48:00, Duration: 30 day, Stop date: 06/05/13 7:47:00 No Longer Active [facility] 05/06/2013 [facility] Lactated Ringers IV 1,000 mL 1,000 mL, Rate: 125 ml/hr, Infuse over: 8 hr, Route: IV, Dosing Weight 72.727 kg, Total Volume: 1,000, Start date: 05/06/13 7:48:00, Duration: 30 day, Stop date: 06/05/13 7:47:00 No Longer Active [facility] 05/06/2013 [facility] lidocaine 1% injectable solution 0.25 mL, Route: INTRADERM, Drug Form: INJ, Dosing Weight 72.727, kg, PRN, PRN Other -See Comment, Start date: 05/06/13 7:48:00, Duration: 30 day, Stop date: 06/05/13 6:47:00Preservative free. (Same as: Xylocaine MPF) No Longer Active [facility] 05/06/2013 [facility] Allergies, Adverse Reactions, Alerts Substance Category Reaction Severity Reaction type Status Date Reported Comments Source Immunizations Immunization Date Given Site Status Last Updated Comments Source Influenza, Vaccine<FLUCELVAX>(Multi-Dose) 05/15/2018 completed [facility] influenza virus vaccine, inactivated 05/09/2013 Left Deltoid completed [facility] influenza virus vaccine, inactivated 05/09/2013 completed [facility] TDap (Tetanus Toxoid, Reduced Diphtheria Toxoid And Acellular Pertussis, Absorbed) 07/16/2012 completed [facility] Results Order Name Results Value Reference Range Date Interpretation Comments Source [facility] CYTOLOGY [facility] Cytology (note) Name ROQUE MEZA Date of 1990 Hospital Number [id number] Location [facility] ([facility]) CYTOPATHOLOGY Collected:05/15/2018 00:00 Received: 05/16/2018 09:53 [...] analyzed by the automated ThinPrep Imaging System, [employer], [place], [place]. 05/17/2018 [facility] HPV HIGH-RISK HPV High Risk Negative NEG 05/16/2018 The APTIMA HPV Assay is an in vitro nucleic acid amplification test for the qualitative detection of E6/E7 viral messenger RNA (mRNA) from 14 high-risk types of human papillomavirus (HPV) in cervical specimens. The high-risk HPV types detected by the assay include: 16,18,31,33,35,39,45,51,52,56,58,59,66, and 68. [facility] HPV HIGH-RISK Co[employer] Spec Number [id number] 05/16/2018 [facility] TEST Negative 05/15/2018 [facility] URINE CULTURE Spec Description Urine 05/15/2018 [facility] URINE CULTURE Order Comments None 05/15/2018 [facility] URINE CULTURE Culture Resembles mixed uro-genital tigist 05/15/2018 [facility] URINE CULTURE Report Status Final 05/17/2018 05/15/2018 [facility] URINE CULTURE Culture Resembles mixed uro-genital tigist BT MICROBIOLOGY 05/15/2018 [facility] Spec Description Cervix 05/15/2018 [facility] GEE STAIN Order Comments Cervix 05/15/2018 [facility] GEE STAIN Direct Exam Hyphae seen 05/15/2018 [facility] GEE STAIN Report Status Final 05/15/2018 05/15/2018 [facility] WET MOUNT Spec Description Cervix 05/15/2018 [facility] WET MOUNT Order Comments None 05/15/2018 [facility] WET MOUNT Exam Clue cells present No Trichomonas seen Many WBC's seen 05/15/2018 [facility] WET MOUNT Report Status Final 05/15/2018 05/15/2018 [facility] PROLACTIN Prolactin 6.54 ng/mL 04/30/2018 REFERENCE RANGE: Female: Non- 2.8 - 29.2 ng/mL 9.7 -208.5 ng/mL Postmenopausal 1.8 - 20.3 ng/mL [facility] TSH TSH 0.73 0.57 - 3.74 04/30/2018 [facility] ANTITHYROGLOBULIN AB Thyroglobulin Ab <1.0
Reference range: 0.0 to 0.9
Unit: IU/mL
(note)
Thyroglobulin Antibody measured by [facility]
03/06/2018 [facility] THYROID PEROXIDASE (TPO) AB Thy Perox (TPO) Ab 16 Reference range: 0 to 34 Unit: IU/mL 03/06/2018 [facility] TOTAL T3 Total T3 73 ng/dL 87 - 178 03/05/2018 [facility] TOTAL T3 Lab Interpretation Abnormal 03/05/2018 [facility] FREE T4 Free T4 0.82 ng/dl 0.61 - 1.18 03/05/2018 females: 1st Trimester-0.52-1.10 ng/dL 2nd Trimester=0.45-0.99 ng/dL 3rd Trimester=0.48-0.95 ng/dL [facility] TSH TSH 0.56 0.57 - 3.74 03/05/2018 [facility] TSH Lab Interpretation Abnormal 03/05/2018 [facility] FTI FTI 2.9 5.93 - 13.13 03/05/2018 [facility] FTI T3 Uptake 42.7 % 32 - 48.4 03/05/2018 [facility] FTI Total T4 6.88 6.09 - 12.23 03/05/2018 [facility] FTI Lab Interpretation Abnormal 03/05/2018 [facility] VIT D, 25-HYDROXY Vit D, 25-Hydroxy 22.6 ng/mL 30 - 100 02/26/2018 Vitamin D deficiency has been defined by the [place] [employer] and [employer] guideline as a level of serum 25-OH Vitamin D less than 20 ng/mL. The Endocrine Society further defines Vitamin D insufficiency as a level between 21 and 29 ng/mL and sufficiency as a level between 30 and 100 ng/mL. [facility] VIT D, 25-HYDROXY Lab Interpretation Abnormal 02/26/2018 [facility] UA CHEMISTRIES Color Straw 02/26/2018 [facility] UA CHEMISTRIES Clarity Clear 02/26/2018 [facility] UA CHEMISTRIES Spec [place] 1.004 1.001 - 1.035 02/26/2018 [facility] UA CHEMISTRIES pH 6.0 5 - 8 02/26/2018 [facility] UA CHEMISTRIES Protein Negative NEG 02/26/2018 [facility] UA CHEMISTRIES Glucose Negative NEG 02/26/2018 [facility] UA CHEMISTRIES Ketone Negative NEG 02/26/2018 [facility] UA CHEMISTRIES Bilirubin Negative NEG 02/26/2018 [facility] UA CHEMISTRIES Nitrate Negative NEG 02/26/2018 [facility] UA CHEMISTRIES Urobilinogen <1.0 0.2 - 1 02/26/2018 [facility] UA CHEMISTRIES Leukocyte Negative NEG 02/26/2018 [facility] UA CHEMISTRIES Blood 2+ NEG 02/26/2018 [facility] UA CHEMISTRIES RBC 1 0 - 4 02/26/2018 [facility] UA CHEMISTRIES WBC 1 0 - 5 02/26/2018 [facility] UA CHEMISTRIES Epithelial Cell 1 /HPF 02/26/2018 [facility] UA CHEMISTRIES Lab Interpretation Abnormal 02/26/2018 [facility] HEPATITIS PANEL HCV IgG Negative NEG 02/25/2018 [facility] HEPATITIS PANEL HBsAg Negative NEG 02/25/2018 [facility] HEPATITIS PANEL HAV, IgM Negative NEG 02/25/2018 [facility] HEPATITIS PANEL HBcAb, IgM Negative NEG 02/25/2018 [facility] HIV-1/HIV-2 DIAGNOSTIC/SYMPTOMATIC HIV-1/HIV-2 Negative NEG 02/25/2018 [facility] CBC/DIFF WBC 4.3 K/uL 4.5 - 11 02/25/2018 [facility] CBC/DIFF RBC 4.40 4.20 - 5.40 02/25/2018 [facility] CBC/DIFF Hemoglobin 13.4 g/dL 12 - 16 02/25/2018 [facility] CBC/DIFF Hematocrit 39.7 % 37 - 47 02/25/2018 [facility] CBC/DIFF MCV 90 fL 82 - 92 02/25/2018 [facility] CBC/DIFF MCH 30.5 pg 27 - 32 02/25/2018 [facility] CBC/DIFF MCHC 33.8 g/dL 32 - 36 02/25/2018 [facility] CBC/DIFF RDW 42.4 fL 36.4 - 46.3 02/25/2018 [facility] CBC/DIFF Platelet 321 K/uL 150 - 400 02/25/2018 [facility] CBC/DIFF Mean Platelet Volume 10.1 fL 9.4 - 12.4 02/25/2018 [facility] CBC/DIFF Percent NRBC 0.0 02/25/2018 [facility] CBC/DIFF Absolute NRBC 0.00 02/25/2018 [facility] CBC/DIFF Neutrophil 53.7 % 34 - 70 02/25/2018 [facility] CBC/DIFF Lymphocyte 32.7 % 20 - 50 02/25/2018 [facility] CBC/DIFF Monocyte 11.1 % 5 - 12 02/25/2018 [facility] CBC/DIFF Eosinophil 1.6 % 0.7 - 5 02/25/2018 [facility] CBC/DIFF Basophil 0.9 % 0.1 - 1.2 02/25/2018 [facility] CBC/DIFF Pct Immat Gran 0.0 0.0 - 0.5 02/25/2018 [facility] CBC/DIFF Neutrophil, Abs 2.33 K/uL 1.56 - 6.13 02/25/2018 [facility] CBC/DIFF Lymphocyte, Abs 1.42 K/uL 1.18 - 3.74 02/25/2018 [facility] CBC/DIFF Monocyte, Abs 0.48 K/uL 0.24 - 0.36 02/25/2018 [facility] CBC/DIFF Eosinophil, Abs 0.07 K/uL 0.04 - 0.36 02/25/2018 [facility] CBC/DIFF Basophil, Abs 0.04 K/uL 0.01 - 0.08 02/25/2018 [facility] CBC/DIFF Absol Immat Gran 0.00 K/uL 0 - 0.03 02/25/2018 [facility] CBC/DIFF Lab Interpretation Abnormal 02/25/2018 [facility] BASIC METABOLIC PANEL CO2 29 mmol/L 21 - 31 02/25/2018 [facility] BASIC METABOLIC PANEL Chloride 107 mmol/L 98 - 107 02/25/2018 [facility] BASIC METABOLIC PANEL Potassium 4.4 mmol/L 3.5 - 5.1 02/25/2018 [facility] BASIC METABOLIC PANEL Sodium 142 mmol/L 136 - 145 02/25/2018 [facility] BASIC METABOLIC PANEL Glucose 87 mg/dL 70 - 110 02/25/2018 [facility] BASIC METABOLIC PANEL Urea Nitrogen 8 mg/dL 7 - 25 02/25/2018 [facility] BASIC METABOLIC PANEL Creatinine 0.80 mg/dL 0.6 - 1.2 02/25/2018 [facility] BASIC METABOLIC PANEL Anion Gap 6 02/25/2018 [facility] BASIC METABOLIC PANEL Calcium 9.7 mg/dL 8.6 - 10.3 02/25/2018 [facility] BASIC METABOLIC PANEL GFR, Estimated >60 mL/min/1.73 m2 02/25/2018 [facility] BASIC METABOLIC PANEL GFR, Estim, Afr-Am >60 mL/min/1.73 m2 02/25/2018 [facility] LIPID PROFILE Cholesterol 169 mg/dL 02/25/2018 REFERENCE RANGE: Desirable: <200 mg/dL Borderline: 200-240 mg/dL High Risk: >240 mg/dL [facility] LIPID PROFILE Triglyceride 43 mg/dL <150 02/25/2018 REFERENCE RANGE: Normal: <150 mg/dL Borderline High: 150-199 mg/dL High: 200-499 mg/dL Very High: >mn=349 mg/dL [facility] LIPID PROFILE HDL 57 mg/dL 02/25/2018 Increased CHD risk: <40 mg/dL Decreased CHD risk: >60 mg/dL [facility] LIPID PROFILE LDL 103 mg/dL 02/25/2018 REFERENCE RANGE: Optimal: <100 mg/dL Near Optimal: 100-129 mg/dL Borderline High: 130-159 mg/dL High: 160-189 mg/dL Very High: >ef=043 mg/dL [facility] LIVER PROFILE T Protein 7.0 g/dL 6 - 8.3 02/25/2018 [facility] LIVER PROFILE Albumin 4.6 g/dL 3.7 - 5.3 02/25/2018 [facility] LIVER PROFILE T Bilirubin 0.8 mg/dL 0.2 - 1.2 02/25/2018 [facility] LIVER PROFILE Alk Phos 51 U/L 34 - 104 02/25/2018 [facility] LIVER PROFILE AST 23 U/L 13 - 39 02/25/2018 [facility] LIVER PROFILE ALT 18 U/L 7 - 52 02/25/2018 [facility] LIVER PROFILE D Bilirubin 0.2 mg/dL 0 - 0.2 02/25/2018 [facility] HEMOGLOBIN A1C Hemoglobin A1c 5.3 % 4.3 - 6.1 02/25/2018 [facility] HEMOGLOBIN A1C Est Average Gluc 105.4 mg/dL 02/25/2018 [facility] URINE CULTURE Spec Description Urine 02/25/2018 [facility] URINE CULTURE Order Comments None 02/25/2018 [facility] URINE CULTURE Culture Resembles mixed uro-genital tigist 02/25/2018 [facility] URINE CULTURE Report Status Final 02/27/2018 02/25/2018 [facility] URINE CULTURE Culture Resembles mixed uro-genital tigist BT MICROBIOLOGY 02/25/2018 [facility] U/S THYROID/NECK <p>IMPRESSION: </p><p> </p><p>1. Thyroid is normal in size and echotexture.</p><p>2. Single cyst in the left lobe as described above (thyroid RADS 1). No</p><p>follow-up is needed.</p><p> </p><p> </p><p>TI-RADS Lexicon:</p><p>TR1, Benign: No FNA</p><p>TR2, Not Suspicious: No FNA.</p><p>TR3a (<1.5 cm): No follow-up.</p><p>TR3b (1.5-2.5 cm), Mildly Suspicious: Follow at 1, 3, 5 years.</p><p>TR3c (>2.5 cm), Mildly Suspicious: FNA.</p><p>TR4a (<1.0 cm): No follow-up.</p><p>TR4b (1.0-1.5 cm), Moderately Suspicious: Follow at 1, 2, 3, 5 years.</p><p>TR4c (>1.5 cm), Moderately Suspicious: FNA.</p><p>TR5a (<0.5 cm): No follow-up.</p><p>TR5b (0.5-1.0 cm), Highly Suspicious: Follow at 1, 2, 3, 4, 5 years.</p><p>TR5c (>1.0 cm), Highly Suspicious: FNA.</p><p>*Rebiopsy if new suspicious features </p><p>*No recommendation at this time for significant interval growth.</p><p> </p><p> </p><p>Nodule Characteristics:</p><p>*Benign features: cystic, hyperechoic, comet-tail artifact, complete</p><p>halo</p><p>*Minor suspicious features: solid, hypoechoic, other calcifications</p><p>*Major suspicious features: microcalcifications, marked hypoechoic</p><p>(less than strap muscle), suspicious lymph nodes, taller than wide,</p><p>lobulated or ill-defined margins. </p><p> </p><p>Literature:</p><p>ACR Thyroid Imaging, Reporting and Data System (TI-RADS): White Paper of</p><p>the ACR TI-RADS Committee. J Am Luciano Radiol 2017.</p><p> </p><p>Dictated By: Blane Howell MD, 02/08/2018 3:50 PM</p><p> </p><p>I have reviewed the study and agree with the findings in this report.</p><p> </p><p>Signed By: Joseline Rand, 02/08/2018 4:48 PM</p><p> </p> <p>IMPRESSION: </p><p> </p><p>1. Thyroid is normal in size and echotexture.</p><p>2. Single cyst in the left lobe as described above (thyroid RADS 1). No</p><p>follow-up is needed.</p><p> </p><p> </p><p>TI-RADS Lexicon:</p><p>TR1, Benign: No FNA</p><p>TR2, Not Suspicious: No FNA.</p> <p>TR3a (<1.5 cm): No follow-up.</p><p>TR3b (1.5-2.5 cm), Mildly Suspicious: Follow at 1, 3, 5 years.</p><p>TR3c (>2.5 cm), Mildly Suspicious: FNA.</p><p> TR4a (<1.0 cm): No follow-up.</p><p>TR4b (1.0-1.5 cm), Moderately Suspicious: Follow at 1, 2, 3, 5 years.</p><p>TR4c (>1.5 cm), Moderately Suspicious: FNA.</p><p>TR5a (<0.5 cm): No follow-up.</p><p>TR5b (0.5-1.0 cm), Highly Suspicious: Follow at 1, 2, 3, 4, 5 years.</p><p>TR5c (>1.0 cm), Highly Suspicious: FNA.</p><p>*Rebiopsy if new suspicious features </p><p>*No recommendation at this time for significant interval growth.</p><p> </p><p> </p><p>Nodule Characteristics:</p><p>*Benign features: cystic, hyperechoic, comet-tail artifact, complete</p><p>halo</p><p>*Minor suspicious features: solid, hypoechoic, other calcifications</p><p>*Major suspicious features: microcalcifications, marked hypoechoic</p><p>(less than strap muscle), suspicious lymph nodes, taller than wide,</p><p>lobulated or ill-defined margins. </p><p> </p><p>Literature:</p><p>ACR Thyroid Imaging, Reporting and Data System (TI-RADS): White Paper of</p><p>the ACR TI-RADS Committee. J Am Luciano Radiol 2017.</p><p> </p><p>Dictated By: Blane Howell MD, 02/08/2018 3:50 PM</p><p> </p><p>I have reviewed the study and agree with the findings in this report.</p><p> </p><p>Signed By: Joseline Rand, 02/08/2018 4:48 PM</p><p> </p> 02/08/2018 [facility] U/S THYROID/NECK <p>EXAM: Thyroid Ultrasound</p><p>INDICATION: check if thyroid enlarged</p><p>COMPARISON: None </p><p>TECHNIQUE: Transverse and sagittal images were obtained of the thyroid</p><p>gland. </p><p> </p><p>FINDINGS:</p><p> </p><p>Thyroid gland:</p><p>Size: </p><p>Right lobe 4.4 x 1.3 x 1.2 cm</p><p>Left lobe 4.1 x 1.3 x 1.5 cm</p><p>Isthmus 0.6 cm</p><p> </p><p>Appearance: Homogeneous echotexture without increased vascularity</p&g t;<p> </p><p>Masses/Nodules:</p><p> </p><p>Left lobe:</p><p> </p><p>0.2 x 0.2 x 0.2 cm cyst in the inferior pole. TR1, Benign: No FNA</p><p> </p><p>Right lobe: No nodules.</p><p> </p><p>Isthmus: No nodules.</p><p> </p><p>Parathyroid:</p><p>No focal parathyroid masses. </p><p> </p> EXAM: Thyroid Ultrasound INDICATION: check if thyroid [...] No nodules. Parathyroid: No focal parathyroid masses. 02/08/2018 [facility]/S THYROID/NECK <p styleCode="header">Interface, Rad/Mammog In - 02/08/2018 4:54 PM CDT</p><p><span>EXAM: Thyroid Ultrasound</span>
<span>INDICATION: check if thyroid enlarged </span>
<span>COMPARISON: None </span>
<span>TECHNIQUE: Transverse and sagittal images were obtained of the thyroid</span>
<span>gland. </span>

<span>FINDINGS:</span>

<span>Thyroid gland:</span>
<span>Size: </span>
<span>Right lobe 4.4 x 1.3 x 1.2 cm</span>
<span>Left lobe 4.1 x 1.3 x 1.5 cm</span>
<span>Isthmus 0.6 cm</span>

<span>Appearance: Homogeneous echotexture without increased vascularity</span>

<span>Masses/Nodules:</span>

<span>Left lobe:</span>

<span>0.2 x 0.2 x 0.2 cm cyst in the inferior pole. TR1, Benign: No FNA</span>

<span>Right lobe: No nodules.</span>

< span>Isthmus: No nodules.</span>

<span>Parathyroid:</span>
<span>No focal parathyroid masses. </span>
<span> </span>
<span>IMPRESSION</span>
<span>IMPRESSION: </span>

<span>1. Thyroid is normal in size and echotexture.</span>
<span>2. Single cyst in the left lobe as described above (thyroid RADS 1). No</span>
<span>follow- up is needed.</span>

<span>TI-RADS Lexicon:</span>
<span>TR1, Benign: No FNA</span>
<span>TR2, Not Suspicious: No FNA.</span>
<span>TR3a (<1.5 cm): No follow-up.</span>
<span>TR3b (1.5- 2.5 cm), Mildly Suspicious: Follow at 1, 3, 5 years.</span>
<span>TR3c (>2.5 cm), Mildly Suspicious: FNA.</span>
<span>TR4a (<1.0 cm): No follow- up.</span>
<span>TR4b (1.0-1.5 cm), Moderately Suspicious: Follow at 1, 2, 3, 5 years.</span>
<span>TR4c (>1.5 cm), Moderately Suspicious: FNA.</span>
<span>TR5a (<0.5 cm): No follow-up.</span>
<span>TR5b (0.5- 1.0 cm), Highly Suspicious: Follow at 1, 2, 3, 4, 5 years.</span& gt;
<span>TR5c (>1.0 cm), Highly Suspicious: FNA.</span>
<span>*Rebiopsy if new suspicious features </span>
<span>*No recommendation at this time for significant interval growth.</span>

<span>Nodule Characteristics:</span>
<span>* Benign features: cystic, hyperechoic, comet -tail artifact, complete</span>
<span>halo</span>
<span>* Minor suspicious features: solid, hypoechoic, other calcifications</span>
<span& gt;* Major suspicious features: microcalcifications, marked hypoechoic</span>
<span>(less than strap muscle), suspicious lymph nodes, taller than wide,</span>
<span>lobulated or ill-defined margins. </span>

<span>Literature:</span>
<span>ACR Thyroid Imaging, Reporting and Data System (TI-RADS): White Paper of</span>
<span>the ACR TI- RADS Committee. J Am Luciano Radiol 2017.</span>

<span>Dictated By: Blane Howell MD, 02/08/2018 3:50 PM</span>

<span>I have reviewed the study and agree with the findings in this report.</span>

<span>Signed By: Joseline Rand, 02/08/2018 4:48 PM</span>
</p> <p styleCode="header">Interface, Rad/Mammog In - 02/08/2018 4:54 PM CDT</p><p><span>EXAM: Thyroid Ultrasound</span>
<span>INDICATION: check if thyroid enlarged </span>
<span>COMPARISON: None </span>
<span>TECHNIQUE: Transverse and sagittal images were obtained of the thyroid</span>
<span>gland. </span>

<span>FINDINGS:</span>

<span>Thyroid gland:</span>
<span>Size: </span>
<span>Right lobe 4.4 x 1.3 x 1.2 cm</span>
<span>Left lobe 4.1 x 1.3 x 1.5 cm</span>
<span>Isthmus 0.6 cm</span>

<span>Appearance: Homogeneous echotexture without increased vascularity</span>

<span>Masses/Nodules:</span>

<span>Left lobe:</span>

<span>0.2 x 0.2 x 0.2 cm cyst in the inferior pole. TR1, Benign: No FNA</span>

<span>Right lobe: No nodules.</span>

< span>Isthmus: No nodules.</span>

<span>Parathyroid:</span>
<span>No focal parathyroid masses. </span>
<span> </span>
<span>IMPRESSION</span>
<span>IMPRESSION: </span>

<span>1. Thyroid is normal in size and echotexture.</span>
<span>2. Single cyst in the left lobe as described above (thyroid RADS 1). No</span>
<span>follow- up is needed.</span>

<span>TI-RADS Lexicon:</span>
<span>TR1, Benign: No FNA</span>
<span>TR2, Not Suspicious: No FNA.</span>
<span>TR3a (<1.5 cm): No follow-up.</span>
<span>TR3b (1.5- 2.5 cm), Mildly Suspicious: Follow at 1, 3, 5 years.</span>
<span>TR3c (>2.5 cm), Mildly Suspicious: FNA.</span>
<span>TR4a (<1.0 cm): No follow- up.</span>
<span>TR4b (1.0-1.5 cm), Moderately Suspicious: Follow at 1, 2, 3, 5 years.</span>
<span>TR4c (>1.5 cm), Moderately Suspicious: FNA.</span>
<span>TR5a (<0.5 cm): No follow-up.</span>
<span>TR5b (0.5- 1.0 cm), Highly Suspicious: Follow at 1, 2, 3, 4, 5 years.</span& gt;
<span>TR5c (>1.0 cm), Highly Suspicious: FNA.</span>
<span>*Rebiopsy if new suspicious features </span>
<span>*No recommendation at this time for significant interval growth.</span>

<span>Nodule Characteristics:</span>
<span>* Benign features: cystic, hyperechoic, comet -tail artifact, complete</span>
<span>halo</span>
<span>* Minor suspicious features: solid, hypoechoic, other calcifications</span>
<span& gt;* Major suspicious features: microcalcifications, marked hypoechoic</span>
<span>(less than strap muscle), suspicious lymph nodes, taller than wide,</span>
<span>lobulated or ill-defined margins. </span>

<span>Literature:</span>
<span>ACR Thyroid Imaging, Reporting and Data System (TI-RADS): White Paper of</span>
<span>the ACR TI- RADS Committee. J Am Luciano Radiol 2017.</span>

<span>Dictated By: Blane Howell MD, 02/08/2018 3:50 PM</span>

<span>I have reviewed the study and agree with the findings in this report.</span>

<span>Signed By: Joseline Rand, 02/08/2018 4:48 PM</span>
</p> 02/08/2018 [facility] U/S THYROID/NECK IMPRESSION: 1. Thyroid is normal in size [...] Signed By: Joseline Rand, 02/08/2018 4:48 PM EXAM: Thyroid Ultrasound INDICATION: check if thyroid [...] No nodules. Parathyroid: No focal parathyroid masses. Interface, Rad/Mammog In - 02/08/2018 4:54 PM [...] Signed By: Joseline Rand, 02/08/2018 4:48 PM 02/08/2018 [facility] URINE AND STOOL UA Leuk Est Small *ABN* (09/18/2013 16:10:00 [place]) Negative 09/18/2013 [facility] URINE AND STOOL UA Urobilinogen 0.2 EU/dL 0.1 - 1.0 09/18/2013 [facility] URINE AND STOOL UA Blood Trace *ABN* (09/18/2013 16:10:00 [place]) Negative 09/18/2013 [facility] URINE AND STOOL UA Bili Negative *NA* (09/18/2013 16:10:00 [place]) Negative 09/18/2013 [facility] URINE AND STOOL UA Ketones Negative *NA* (09/18/2013 16:10:00 [place]) Negative 09/18/2013 [facility] URINE AND STOOL UA Nitrite Negative (09/18/2013 16:10:00 [place]) Negative 09/18/2013 [facility] URINE AND STOOL UA Glucose Negative (09/18/2013 16:10:00 [place]) Negative 09/18/2013 [facility] URINE AND STOOL UA Protein Negative (09/18/2013 16:10:00 [place]) Negative 09/18/2013 [facility] URINE AND STOOL UA Turbidity Slight Cloudy (09/18/2013 16:10:00 [place]) Clear 09/18/2013 [facility] URINE AND STOOL UA pH 6.0 5.0 - 8.0 09/18/2013 [facility] URINE AND STOOL UA Spec Grav 1.015 <=1.030 09/18/2013 [facility] URINE AND STOOL UA Color Yellow *NA* (09/18/2013 16:10:00 [place]) Yellow 09/18/2013 [facility] URINE AND STOOL UA WBC 11-20 /HPF None Seen /HPF 09/18/2013 [facility] URINE AND STOOL UA Mucus Few /LPF None Seen /LPF 09/18/2013 [facility] URINE AND STOOL UA Bacteria Moderate /HPF None Seen /HPF 09/18/2013 [facility] URINE AND STOOL UA Sq Epi Few /LPF Few /LPF 09/18/2013 [facility] URINE CHEM U Preg Negative (09/18/2013 16:10:00 [place]) Negative 09/18/2013 [facility] HEMATOLOGY Hgb 10.1 g/dL 12.0 - 16.0 05/08/2013 LOW [facility] HEMATOLOGY Hct 30.8 % 36.0 - 48.0 05/08/2013 LOW [facility] CHEMISTRY U Opiate Scr Negative *NA* (05/06/2013 07:26:13) Negative 05/06/2013 [facility] CHEMISTRY U Phencyc Scr Negative *NA* (05/06/2013 07:26:13) Negative 05/06/2013 [facility] CHEMISTRY U Basilia Scr Negative *NA* (05/06/2013 07:26:13) Negative 05/06/2013 [facility] CHEMISTRY UDS Note See Note 2 *NA* (05/06/2013 07:26:13) 05/06/2013 2Interpretive Data: Drugs reported as positive have [...] Methadone 300 ng/mL Urine alcohol 20 mg/dL [facility] CHEMISTRY U Benzodia Scr Negative *NA* (05/06/2013 07:26:13) Negative 05/06/2013 [facility] CHEMISTRY U Cocaine Scr Negative *NA* (05/06/2013 07:26:13) Negative 05/06/2013 [facility] CHEMISTRY U Cannab Scr Negative *NA* (05/06/2013 07:26:13) Negative 05/06/2013 [facility] CHEMISTRY U Amph Scr Negative *NA* (05/06/2013 07:26:13) Negative 05/06/2013 [facility] BLOOD BANK RESULTS Antibody Scrn Negative (05/06/2013 07:15:00) 05/06/2013 Normal [facility] BLOOD BANK RESULTS ABO/Rh O POS 05/06/2013 [facility] BLOOD BANK RESULTS Rhig Reqd See Note 1 (05/06/2013 07:15:00) 05/06/2013 Normal 1Result Comment: 05/06/2013 08:54 VIHOWE This patient is not a candidate for Rh(O)D immune globulin. [facility] HEMATOLOGY Segs 69.9 % 45.0 - 75.0 05/06/2013 Normal [facility] HEMATOLOGY Segs-Bands # 6.6 K/CMM 1.5 - 8.1 05/06/2013 Normal [facility] HEMATOLOGY Eosinophils # 0.1 K/CMM 0.0 - 0.5 05/06/2013 Normal [facility] HEMATOLOGY Monocytes # 1.2 K/CMM 0.0 - 0.8 05/06/2013 HI [facility] HEMATOLOGY Basophils # 0.0 K/CMM 0.0 - 0.2 05/06/2013 Normal [facility] HEMATOLOGY Lymphocytes # 1.5 K/CMM 1.0 - 5.5 05/06/2013 Normal [facility] HEMATOLOGY Monocytes 12.4 % 2.0 - 12.0 05/06/2013 HI [facility] HEMATOLOGY Lymphocytes 15.8 % 20.0 - 40.0 05/06/2013 LOW [facility] HEMATOLOGY Eosinophils 1.4 % 0.0 - 4.0 05/06/2013 Normal [facility] HEMATOLOGY Basophils 0.5 % 0.0 - 1.0 05/06/2013 Normal [facility] HEMATOLOGY MPV 8.5 fL 7.4 - 10.4 05/06/2013 Normal [facility] HEMATOLOGY MCHC 34.6 g/dL 32.0 - 36.0 05/06/2013 Normal [facility] HEMATOLOGY Platelet 256 K/CMM 133 - 450 05/06/2013 Normal [facility] HEMATOLOGY RDW 14.3 % 11.5 - 14.5 05/06/2013 Normal [facility] HEMATOLOGY MCH 29.3 pg 27.0 - 31.0 05/06/2013 Normal [facility] HEMATOLOGY WBC X 10x3 9.5 K/CMM 3.7 - 10.4 05/06/2013 Normal [facility] HEMATOLOGY RBC X 10x6 3.98 M/CMM 4.20 - 5.40 05/06/2013 LOW [facility] HEMATOLOGY Hct 33.7 % 36.0 - 48.0 05/06/2013 LOW [facility] HEMATOLOGY MCV 84.6 fL 81.0 - 99.0 05/06/2013 Normal [facility] HEMATOLOGY Hgb 11.6 g/dL 12.0 - 16.0 05/06/2013 LOW [facility] IMMUNOLOGY Hep Bs Ag Negative *NA* (05/06/2013 07:15:00) Negative 05/06/2013 [facility] IMMUNOLOGY Treponemal Scr Non Reactive *NA* (05/06/2013 07:15:00) Non Reactive 05/06/2013 [facility] Vital Signs Vital Sign Value Date Comments Source Respitory Rate 18 06/05/2018 [facility] Height 157.5 cm 06/05/2018 [facility] Weight 63.504 06/05/2018 [facility] BMI Calculated 25.61 06/05/2018 [facility] Systolic (mm Hg) 132 05/27/2018 [facility] Diastolic (mm Hg) 82 05/27/2018 [facility] Heart Rate 80 05/27/2018 [facility] Temperature Oral (F) 37 Roxanne 05/27/2018 [facility] Systolic (mm Hg) 94 05/15/2018 [facility] Diastolic (mm Hg) 55 05/15/2018 [facility] Heart Rate 83 05/15/2018 [facility] Temperature Oral (F) 36.67 Roxanne 05/15/2018 [facility] Respitory Rate 20 05/15/2018 [facility] Height 157.5 cm 05/15/2018 [facility] Weight 64.32 05/15/2018 [facility] BMI Calculated 25.94 05/15/2018 [facility] Systolic (mm Hg) 106 03/11/2018 [facility] Diastolic (mm Hg) 70 03/11/2018 [facility] Heart Rate 59 03/11/2018 [facility] Temperature Oral (F) 36.72 Roxanne 03/05/2018 [facility] Respitory Rate 18 03/05/2018 [facility] Height 157.5 cm 03/05/2018 [facility] Weight 62.687 03/05/2018 [facility] BMI Calculated 25.28 03/05/2018 [facility] Temperature Oral (F) 98.1 F 10/01/2013 [facility] Height 157.48 cm 10/01/2013 [facility] BMI Calculated 22.54 10/01/2013 [facility] Weight 55.909 10/01/2013 [facility] Systolic (mm Hg) 121 10/01/2013 [facility] Diastolic (mm Hg) 77 10/01/2013 [facility] Heart Rate 78 10/01/2013 [facility] Respitory Rate 20 10/01/2013 [facility] Temperature Oral (F) 97.9 F 09/18/2013 [facility] Diastolic (mm Hg) 89 09/18/2013 [facility] Systolic (mm Hg) 120 09/18/2013 [facility] Respitory Rate 18 09/18/2013 [facility] Heart Rate 69 09/18/2013 [facility] Weight 61.364 09/18/2013 [facility] Temperature Oral (F) 98.1 F 09/18/2013 [facility] Heart Rate 62 09/18/2013 [facility] Diastolic (mm Hg) 73 09/18/2013 [facility] Systolic (mm Hg) 123 09/18/2013 [facility] Respitory Rate 18 09/18/2013 [facility] Weight 72.727 05/06/2013 [facility] Height 157.48 cm 05/06/2013 [facility] Encounters Location Location Details Encounter Type Encounter Number Reason For Visit Attending Provider ADM Date DC Date Status Source [facility] Inpatient [id number] JESSICA GLORIA 05/06/2013 05/09/2013 Active [facility] [id number] _MAPID:[id number] Emory Vera 09/18/2013 09/18/2013 [facility] [id number] _MAPID:[id number] [address] [place] 10/01/2013 10/01/2013 [facility] Visit [id number] 01/11/2018 [facility] Office Visit [id number] Health care maintenance Rash and other nonspecific skin eruption Encounter for contraceptive management, unspecified type Nancy Herndon MD 01/11/2018 01/11/2018 [facility] Ultrasound Ancillary Procedure [id number] Health care maintenance 02/08/2018 02/08/2018 [facility] Dental [facility] Visit [id number] Impacted third molar tooth Chronic gingivitis Brittaney Meza DDS 02/20/2018 02/20/2018 [facility] Telephone [id number] Nancy Herndon MD 02/25/2018 [facility] Orders Only [id number] Low TSH level Nancy Herndon MD 02/25/2018 [facility] Visit [id number] 02/27/2018 [facility] Telephone [id number] Nancy Herndon MD 02/27/2018 [facility] Orders Only [id number] Vitamin D insufficiency Other microscopic hematuria Nancy Herndon MD 02/27/2018 [facility] Orders Only [id number] Overweight (BMI 25.0-29.9) Nancy Herndon MD 03/05/2018 [facility] Visit [id number] 03/05/2018 [facility] Visit [id number] Low TSH level Other microscopic hematuria Vitamin D insufficiency Overweight (BMI 25.0-29.9) Hematuria, unspecified type Health care maintenance Nancy Herndon MD 03/05/2018 03/05/2018 [facility] Telephone [id number] Nancy Herndon MD 03/09/2018 [facility] Orders Only [id number] Low TSH level Nancy Herndon MD 03/09/2018 [facility] Visit [id number] Chronic gingivitis, plaque induced Brittaney Meza DDS 03/11/2018 03/11/2018 [facility] Visit [id number] 04/09/2018 [facility] Office Visit [id number] Eczema, unspecified type Rash and other nonspecific skin eruption Lea Still MD 04/09/2018 04/09/2018 [facility] Telephone [id number] Nancy Herndon MD 04/20/2018 [facility] Visit [id number] 05/15/2018 [facility] Office Visit [id number] Need for vaccination Well woman exam Other microscopic hematuria Overweight (BMI 25.0-29.9) Vitamin D insufficiency Low TSH level Yeast vaginitis BV (bacterial vaginosis) Brittaney Meza DDS 05/15/2018 05/15/2018 [facility] Office Visit [id number] Encounter for dental examination Impacted tooth Ramiro Connell DDS 05/27/2018 05/27/2018 [facility] Office Visit [id number] Cruzito Tapia DDS 06/05/2018 06/05/2018 [facility] Procedures Procedure Code Date Perfomer Comments Source TEST [id number] 05/15/2018 [facility] URINE CULTURE 68172 05/15/2018 [facility] GEE STAIN [id number] 05/15/2018 [facility] WET MOUNT [id number] 05/15/2018 [facility] HPV HIGH-RISK 52147 05/15/2018 [facility] BTGH CYTOLOGY [id number] 05/15/2018 [facility] TSH 80212 04/30/2018 [facility] PROLACTIN [id number] 04/30/2018 [facility] FTI 03811 03/05/2018 [facility] FREE T4 40830 03/05/2018 [facility] TSH [id number] 03/05/2018 [facility] [place] ([place]) [place] [id number] 03/05/2018 [facility] TOTAL T3 49966 03/05/2018 [facility] [place] [id number] 03/05/2018 [facility] URINE CULTURE 70583 02/25/2018 [facility] UA CHEMISTRIES [id number] 02/25/2018 [facility] HIV-1/HIV-2 DIAGNOSTIC/SYMPTOMATIC [id number] 02/25/2018 [facility] HEPATITIS PANEL [id number] 02/25/2018 [facility] TSH 54802 02/25/2018 [facility] LIVER PROFILE [id number] 02/25/2018 [facility] BASIC METABOLIC PANEL [id number] 02/25/2018 [facility] CBC/DIFF 44087 02/25/2018 [facility] HEMOGLOBIN A1C 08699 02/25/2018 [facility] LIPID PROFILE [id number] 02/25/2018 [facility] VIT D, 25-HYDROXY 98426 02/25/2018 [facility] U/S THYROID/NECK [id number] 02/08/2018 [facility] Other Manually Assisted Delivery 73.59 05/07/2013 [facility] Repair of Other Current Obstetric Laceration 75.69 05/07/2013 [facility]
--- OUTSIDE RECORDS SUMMARY | 2018-06-10 21:11 | XMS REPORT | CCD ---
Author Author Auto Generated Organization [facility] Address Unknown Phone Unavailable Care Team Providers Care Donor Services Team Leader Name Role Phone Constantino Lake CP Allergies, [...] 30 day, Stop date: 06/06/13 8:28:00(Same as: [place] 325/5) Do not exceed 4gm/day of acetaminophen. acetaminophen-hydroc 1 tab, Route: PO, Drug Form: TAB, 05/07/2013 05/09/2013 Discontinued odone 325 mg-5 mg Dosing Weight 72.727, kg, Q4H, PRN oral tablet Pain Score 1-3, Start date: 05/07/13 8:29:00, Duration: 30 day, Stop date: 06/06/13 8:28:00(Same as: [place] 325/5) Do not exceed 4gm/day of acetaminophen. [...] Dermoplast) bisacodyl 10 mg, 1 supp, Route: GA, Drug 05/07/2013 05/09/2013 Discontinued form: SUPP, PRN, [...] 1 doses or times(Same as: M-M-R II) (fwxuaho-dhwuy-uqwetfj virus vaccine 0.5 ml INJ VL) GIVE [...] food. misoprostol 1,000 microgram, 5 tab, Route: GA, 05/06/2013 05/07/2013 Discontinued Drug form: TAB, ONCALL, [...] Limited # of timesDO NOT USE IN LOADER UNLOADER AREA(Same As: Brethine) citric acid-sodium 30 mL, [...]
--- OUTSIDE RECORDS SUMMARY | 2018-06-10 21:11 | XMS REPORT | CCD ---
Author Author Auto Generated Organization [facility] Address Unknown Phone Unavailable Care Team Providers Care Motor Setter Name Role Phone Constantino Lake CP Allergies, [...] 30 day, Stop date: 06/06/13 8:28:00(Same as: [place] 325/5) Do not exceed 4gm/day of acetaminophen. acetaminophen-hydroc 1 tab, Route: PO, Drug Form: TAB, 05/07/2013 05/09/2013 Discontinued odone 325 mg-5 mg Dosing Weight 72.727, kg, Q4H, PRN oral tablet Pain Score 1-3, Start date: 05/07/13 8:29:00, Duration: 30 day, Stop date: 06/06/13 8:28:00(Same as: [place] 325/5) Do not exceed 4gm/day of acetaminophen. [...] Dermoplast) bisacodyl 10 mg, 1 supp, Route: [place], Drug 05/07/2013 05/09/2013 Discontinued form: SUPP, PRN, [...] 1 doses or times(Same as: M-M-R II) (bpegcpm-nqxux-jahfftd virus vaccine 0.5 ml INJ VL) GIVE [...] food. misoprostol 1,000 microgram, 5 tab, Route: NV, 05/06/2013 05/07/2013 Discontinued Drug form: TAB, ONCALL, [...] Limited # of timesDO NOT USE IN PAVER OPERATOR AREA(Same As: Brethine) citric acid-sodium 30 mL, [...]
--- OUTSIDE RECORDS SUMMARY | 2018-06-10 21:11 | XMS REPORT | CCD ---
Author Author Auto Generated Organization [facility] Address Unknown Phone Unavailable Care Team Providers Care Ocean Export Coordinator Name Role Phone Constantino Lake CP Allergies, [...] 30 day, Stop date: 06/06/13 8:28:00(Same as: [place] 325/5) Do not exceed 4gm/day of acetaminophen. acetaminophen-hydroc 1 tab, Route: PO, Drug Form: TAB, 05/07/2013 05/09/2013 Discontinued odone 325 mg-5 mg Dosing Weight 72.727, kg, Q4H, PRN oral tablet Pain Score 1-3, Start date: 05/07/13 8:29:00, Duration: 30 day, Stop date: 06/06/13 8:28:00(Same as: [place] 325/5) Do not exceed 4gm/day of acetaminophen. [...] Dermoplast) bisacodyl 10 mg, 1 supp, Route: [place], Drug 05/07/2013 05/09/2013 Discontinued form: SUPP, PRN, [...] 1 doses or times(Same as: M-M-R II) (pueqhzu-cxaah-rxcrcqn virus vaccine 0.5 ml INJ VL) GIVE [...] food. misoprostol 1,000 microgram, 5 tab, Route: [place], 05/06/2013 05/07/2013 Discontinued Drug form: TAB, ONCALL, [...] Limited # of timesDO NOT USE IN RISK CONTROL OFFICER AREA(Same As: Brethine) citric acid-sodium 30 mL, [...]
--- OUTSIDE RECORDS SUMMARY | 2018-06-10 21:12 | XMS REPORT | Summary of Care ---
Author Organization Unknown Address Unknown Phone Unavailable Encounter Dates Location Diagnoses Discharge Providers Disposition 09/18/2013 [facility] Discharge Home [facility] Diagnosis: UTI 09/18/2013 [address] (lower urinary [place], [place] [address]- , [place] tract infection) Reason for Visit UTI Vital Signs Most recent to 1 2 oldest [Reference Range]: Temperature Oral 97.9 DegF 98.1 DegF [96.4-99.1 DegF] (09/18/2013 17:32:00 [place]) (09/18/2013 15:55:00 [place]) Systolic Blood 120 mmHg 123 mmHg Pressure [90-140 (09/18/2013 17:32:00 [place]) (09/18/2013 15:55:00 [place]) mmHg] Diastolic Blood 89 mmHg 73 mmHg Pressure [60-90 (09/18/2013 17:32:00 [place]) (09/18/2013 15:55:00 [place]) mmHg] Respiratory Rate 18 BRMIN 18 BRMIN [14-20 BRMIN] (09/18/2013 17:32:00 [place]) (09/18/2013 15:55:00 [place]) Peripheral Pulse 69 bpm 62 bpm Rate [60-100 bpm] (09/18/2013 17:32:00 [place]) (09/18/2013 15:55:00 [place]) Weight 61.364 kg (09/18/2013 15:55:00 [place]) Problem List No data available for this section Allergies, Adverse Reactions, Alerts Status Substance Reaction Severity Active NKDA Medications Medication Instructions Start Date Stop Date Status Macrobid 100 mg oral 100 mg=1 cap, PO, BID, # 14 cap, 0 09/18/2013 09/25/2013 Ordered capsule Refill(s) Pyridium 200 mg oral 200 mg=1 tab, PO, TID, # 9 tab, 0 09/18/2013 09/21/2013 Ordered tablet Refill(s) Results URINE CHEM Most recent to 1 oldest [Reference Range]: U Preg [Negative] Negative (09/18/2013 16:10:00 [facility]) URINE AND STOOL Most recent to 1 oldest [Reference Range]: UA Turbidity [Clear] Slight Cloudy (09/18/2013 16:10:00 [facility]) UA Color [Yellow] Yellow *NA* (09/18/2013 16:10:00 [facility]) UA pH [5.0-8.0] 6.0 (09/18/2013 16:10:00 [facility]) UA Spec Grav 1.015 [<=1.030] (09/18/2013 16:10:00 [facility]) UA Glucose Negative [Negative] (09/18/2013 16:10:00 [facility]) UA Blood [Negative] Trace *ABN* (09/18/2013 16:10:00 [facility]) UA Ketones Negative [Negative] *NA* (09/18/2013 16:10:00 [facility]) UA Protein Negative [Negative] (09/18/2013 16:10:00 [facility]) UA Urobilinogen 0.2 EU/dL [0.1-1.0 EU/dL] (09/18/2013 16:10:00 [facility]) UA Bili [Negative] Negative *NA* (09/18/2013 16:10:00 [facility]) UA Leuk Est Small [Negative] *ABN* (09/18/2013 16:10:00 [facility]) UA Nitrite Negative [Negative] (09/18/2013 16:10:00 [facility]) UA WBC [None Seen 11-20 /HPF /HPF] *ABN* (09/18/2013 16:10:00 [facility]) UA Bacteria [None Moderate /HPF Seen /HPF] (09/18/2013 16:10:00 [facility]) UA Sq Epi [Few /LPF] Few /LPF (09/18/2013 16:10:00 [facility]) UA Mucus [None Seen Few /LPF /LPF] (09/18/2013 16:10:00 [facility]) Medications Administered During Your Visit No data available for this section Immunizations Vaccine Date Refusal Reason influenza virus vaccine, inactivated 05/09/2013
--- OUTSIDE RECORDS SUMMARY | 2018-06-10 21:12 | XMS REPORT | CCD ---
Author Author Auto Generated Organization [facility] Address Unknown Phone Unavailable Care Team Providers Care Network Operations Specialist Name Role Phone Constantino Lake CP Allergies, [...] 30 day, Stop date: 06/06/13 8:28:00(Same as: [place] 325/5) Do not exceed 4gm/day of acetaminophen. acetaminophen-hydroc 1 tab, Route: PO, Drug Form: TAB, 05/07/2013 05/09/2013 Discontinued odone 325 mg-5 mg Dosing Weight 72.727, kg, Q4H, PRN oral tablet Pain Score 1-3, Start date: 05/07/13 8:29:00, Duration: 30 day, Stop date: 06/06/13 8:28:00(Same as: [place] 325/5) Do not exceed 4gm/day of acetaminophen. [...] Dermoplast) bisacodyl 10 mg, 1 supp, Route: [place], Drug 05/07/2013 05/09/2013 Discontinued form: SUPP, PRN, [...] 1 doses or times(Same as: M-M-R II) (tuabaef-wioqx-mkiphws virus vaccine 0.5 ml INJ VL) GIVE [...] food. misoprostol 1,000 microgram, 5 tab, Route: [place], 05/06/2013 05/07/2013 Discontinued Drug form: TAB, ONCALL, [...] Limited # of timesDO NOT USE IN BUSINESS INFORMATION CONSULTANT AREA(Same As: Brethine) citric acid-sodium 30 mL, [...] Bs Ag [Negative] Negative *NA* (05/06/2013 07:15:00) Procedures Procedures Date Related Diagnosis Other Manually Assisted Delivery 05/07/2013 00:00:00 Repair of Other Current Obstetric Laceration 05/07/2013 00:00:00
--- OUTSIDE RECORDS SUMMARY | 2018-06-10 21:12 | XMS REPORT | Summary of Care ---
Author Organization Unknown Address Unknown Phone Unavailable Encounter Dates Location Diagnoses Discharge Providers Disposition 10/01/2013 [facility] [facility] 10/01/2013 [address], [place] [address] , [facility] Reason for Visit [facility]INARY ST Vital Signs Most recent to 1 oldest [Reference Range]: Height 157.48 cm (10/01/2013 13:43:00 [place]) Temperature Oral 98.1 DegF [96.4-99.1 DegF] (10/01/2013 13:43:00 [place]) Systolic Blood 121 mmHg Pressure [90-140 (10/01/2013 13:43:00 [place]) mmHg] Diastolic Blood 77 mmHg Pressure [60-90 (10/01/2013 13:43:00 [place]) mmHg] Respiratory Rate 20 BRMIN [14-20 BRMIN] (10/01/2013 13:43:00 [place]) Peripheral Pulse 78 bpm Rate [60-100 bpm] (10/01/2013 13:43:00 [place]) Weight 55.909 kg (10/01/2013 13:43:00 [place]) Body Mass Index 22.54 m2 (10/01/2013 13:43:00 [place]) Problem List No data available for this section Allergies, Adverse Reactions, Alerts Status Substance Reaction Severity Active NKDA Medications No data available for this section Medications Administered During Your Visit No data available for this section Immunizations Vaccine Date Refusal Reason influenza virus vaccine, inactivated 05/09/2013
--- OUTSIDE RECORDS SUMMARY | 2018-06-10 21:12 | XMS REPORT | Clinical Summary ---
Author Author [facility] Organization [facility] Address Unknown Phone Unavailable Care Team Providers Care Wind Turbine Electrical Engineer Name Role Phone Nancy Herndon MD PCP Allergies No Known Allergies Current [...] for eczema. and other nonspecific skin eruption triamcinolone (TRIDERM) Apply to affected area 2 80 g 0 01/12/20 04/09/20 Discontin 0.1 % topical times daily. 18 18 ued creamIndications: Rash and other nonspecific skin eruption Active Problems Problem Noted Date Overweight (BMI 25.0-29.9) 03/05/2018 Low TSH level 02/25/2018 Chronic gingivitis, plaque induced 02/20/2018 Rash and other nonspecific skin eruption 01/11/2018 Encounter for contraceptive management 01/11/2018 Blood in urine Vitamin D insufficiency Encounters Date Type Specialty Care Team Description 04/09/2018 Office Visit Dermatology Lea Still MD Eczema, unspecified type (Primary Dx); Rash and other nonspecific skin eruption 04/09/2018 Pharmacy Visit 03/11/2018 Office Visit Dentistry Brittaney Gonzalez DDS Chronic gingivitis, plaque induced (Primary Dx) 03/09/2018 Telephone [facility] Nancy Herndon MD Results (Needs lab appointment) 03/09/2018 Orders Only [facility] Nancy Thurman MD Low TSH level (Primary Dx) 03/05/2018 Office Visit [facility] Nancy Thurman MD Low TSH level (Primary Dx); Other microscopic hematuria; Vitamin D insufficiency; Overweight (BMI 25.0-29.9); Hematuria, unspecified type; Health care maintenance 03/05/2018 Orders Only [facility] Nancy Thurman MD Overweight (BMI 25.0-29.9) 03/05/2018 Pharmacy Visit 02/27/2018 Pharmacy Visit 02/27/2018 Telephone [facility] Nancy Thurman MD Results 02/27/2018 Orders Only [facility] Nancy Thurman MD Vitamin D insufficiency (Primary Dx); Other microscopic hematuria 02/25/2018 Telephone [facility] Nancy Thurman MD Results 02/25/2018 Orders Only [facility] Nancy Thurman MD Low TSH level (Primary Dx) 02/20/2018 Office Visit Dentistry Brittaney Gonzalez DDS Impacted third molar tooth (Primary Dx); Chronic gingivitis 02/08/2018 Ancillary Radiology Health care maintenance Procedure 01/11/2018 Office Visit [facility] Nancy Thurman MD Health care maintenance (Primary Dx); Rash and other nonspecific skin eruption; Encounter for contraceptive management, unspecified type 01/11/2018 Pharmacy Visit after 04/09/2017 Family History Medical History Relation Name Comments [...] Tobacco Use Types Packs/Day Years Used Date Former Smoker Smokeless Tobacco: Never Used Alcohol Use Drinks/Week oz/Week Comments No Sex Assigned at Date Recorded Not on file Last Filed Vital Signs Vital Sign Reading Time Taken Blood Pressure 106/70 03/11/2018 1:20 PM CDT Pulse 59 03/11/2018 1:20 PM CDT Temperature 36.7 C (98.1 F) 03/05/2018 8:27 AM CDT Respiratory Rate 18 03/05/2018 8:27 AM CDT Oxygen Saturation - - Inhaled Oxygen - - Concentration Weight 62.7 kg (138 lb 3.2 oz) 03/05/2018 8:27 AM CDT Height 157.5 cm (5' 2") 03/05/2018 8:27 AM CDT Body Mass Index 25.28 03/05/2018 8:27 AM CDT Plan of Treatment Date Type Specialty Care Team Description 04/30/2018 OB metal inspector Ana Cristina Marcus, ENGINEERING TECHNICAL WRITER [address] [place], [place] [id number] Nancy Benjamin MD [address] [place] [address] [phone] 05/27/2018 Office Visit Oral Surgery Ref#[id number] Health Maintenance Due Date Last Done Comments Cervical Cancer Scrn (3 2012 Yrs) IMM Influenza Seasonal 04/15/2018Apr to September (>/=19 yrs) Procedures Procedure Name Priority Date/Time Associated Diagnosis Comments ANTITHYROGLOBULIN AB Routine 03/05/2018 Low TSH level [...] procedure are in the results section. after 04/09/2017 Results * THYROID PEROXIDASE (TPO) AB (03/05/2018 8:38 AM) Thy Perox (TPO) Ab 16 LABORATORY Reference range: 0 to 34 CORPORATION OF Unit: IU/mL GEENA Performing Organization Address [facility] Phone Number TMS [facility] [address] [id number] GEENA 145 * ANTITHYROGLOBULIN AB (03/05/2018 8:38 AM) Thyroglobulin Ab <1.0 LABORATORY Reference range: 0.0 to 0.9 CORPORATION OF Unit: IU/mL GEENA (note) Thyroglobulin Antibody measured by [facility] Methodology Specimen Blood Performing Organization Address [facility] Phone Number TMS [facility] [address] [place] [address] GEENA 145 * TSH (03/05/2018 8:38 AM) Only the most recent of 2 results within the time period is included. TSH 0.56 (L) 0.57 - 3.74 uIU/mL BT MAIN-STATION 1 Specimen Blood Performing Organization Address [facility] Phone Number [facility] * TOTAL T3 (03/05/2018 8:38 AM) Total T3 73 (L) 87 - 178 ng/dL BT MAIN-STATION 1 Specimen Blood Performing Organization Address [facility] Phone Number [facility] BT MAIN-STATION 1 * FTI (03/05/2018 8:38 AM) FTI 2.9 (L) 5.93 - 13.13 Index BT MAIN-STATION 1 T3 Uptake 42.7 32.0 - 48.4 % BT MAIN-STATION 1 Total T4 6.88 6.09 - 12.23 mcg/dL BT MAIN-STATION 1 Specimen Blood Performing Organization Address [facility] Phone Number [facility] BT MAIN-STATION 1 * FREE T4 (03/05/2018 8:38 AM) Free T4 0.82 0.61 - 1.18 ng/dl BT MAIN-STATION 1 Comment: females: 1st Trimester-0.52-1.10 ng/dL 2nd Trimester=0.45-0.99 ng/dL 3rd Trimester=0.48-0.95 ng/dL Specimen Blood Performing Organization Address [facility] Phone [facility] * URINE CULTURE (02/25/2018 9:34 AM) Spec Description Urine [facility] Order Comments None [facility] Culture Resembles mixed uro-genital BT MICROBIOLOGY tigist Report Status Final 02/27/2018 BT MICROBIOLOGY Specimen Urine - URINE Performing Organization Address [facility] Phone Number [facility] BT MICROBIOLOGY * UA CHEMISTRIES (02/25/2018 9:33 AM) Color Straw BT MAIN-STATION 2 Clarity Clear BT MAIN-STATION 2 Spec [place] 1.004 1.001 - 1.035 BT MAIN-STATION 2 [...] MAIN-STATION 2 Specimen Urine Performing Organization Address [facility] Phone Number [facility] BT MAIN-STATION 2 * VIT D, 25-HYDROXY (02/25/2018 9:32 AM) Vit D, 25-Hydroxy 22.6 (L) 30 - 100 ng/mL BT DIAGNOSTIC Comment: IMMUNOLOGY Vitamin D deficiency has been defined by the [place] of Medicine and Endocrine Society guideline as a level of serum 25-OH Vitamin D less than 20 ng/mL. The Endocrine Society further defines Vitamin D insufficiency as a level between 21 and 29 ng/mL and sufficiency as a level between 30 and 100 ng/mL. Performing Organization Address [facility] Phone Number [facility] BT DIAGNOSTIC IMMUNOLOGY * HEMOGLOBIN A1C (02/25/2018 9:32 AM) Hemoglobin A1c 5.3 4.3 - 6.1 % BT DIAGNOSTIC IMMUNOLOGY Est Average Gluc 105.4 mg/dL BT DIAGNOSTIC IMMUNOLOGY Performing Organization Address [facility] Phone Number [facility] BT DIAGNOSTIC IMMUNOLOGY * [...] MAIN-STATION 1 Specimen Blood Performing Organization Address [facility] Phone Number [facility] BT MAIN-STATION 1 * LIPID PROFILE (02/25/2018 9:32 AM) Cholesterol 169 mg/dL BT MAIN-STATION 1 Comment: REFERENCE RANGE: Desirable: <200 mg/dL Borderline: 200-240 mg/dL High Risk: >240 mg/dL Triglyceride 43 <150 mg/dL BT MAIN-STATION 1 Comment: REFERENCE RANGE: Normal: <150 mg/dL Borderline High: 150-199 mg/dL High: 200-499 mg/dL Very High: >qa=148 mg/dL HDL 57 mg/dL BT MAIN-STATION 1 Comment: Increased CHD risk: <40 mg/dL Decreased CHD risk: >60 mg/dL LDL 103 mg/dL BT MAIN-STATION 1 Comment: REFERENCE RANGE: Optimal: <100 mg/dL Near Optimal: 100-129 mg/dL Borderline High: 130-159 mg/dL High: 160-189 mg/dL Very High: >fw=255 mg/dL Performing Organization Address [facility] Phone Number [facility] BT MAIN-STATION 1 * HIV-1/HIV-2 DIAGNOSTIC/SYMPTOMATIC (02/25/2018 9:32 AM) HIV-1/HIV-2 Negative NEG BT MAIN-STATION 3 Specimen Blood Performing Organization Address [facility] Phone Number [facility] * HEPATITIS PANEL (02/25/2018 9:32 AM) HCV IgG Negative NEG BT MAIN-STATION 3 HBsAg Negative NEG BT MAIN-STATION 3 HAV, IgM Negative NEG BT MAIN-STATION 3 HBcAb, IgM Negative NEG BT MAIN-STATION 3 Specimen Blood Performing Organization Address [facility] Phone Number [facility] * CBC/DIFF (02/25/2018 9:32 [...] K/uL BT MAIN-STATION [address] [facility]/[place] Phone Number [facility]ISYS BT MAIN-STATION 2 * [...] m2 BT MAIN-STATION 1 Performing Organization Address [facility] Phone Number [facility] BT MAIN-STATION 1 * [...] Organization Address City/State/Zipcode Phone Number SMS after 04/09/2017
--- OUTSIDE RECORDS SUMMARY | 2018-06-10 21:12 | XMS REPORT | Clinical Summary ---
Author Author [facility] Organization [facility] Address Unknown Phone Unavailable Care Team Providers Care Billboard Erector Name Role Phone PCP Unavailable Allergies Not on File Current Medications Not on file Active Problems Not on file Encounters Date Type Specialty Care Team Description 01/11/2018 Office Visit Family Practice Nancy Herndon MD after 01/10/2017 Social History Tobacco Use Types Packs/Day Years Used Date Never Assessed Sex Assigned at Date Recorded Not on file Last Filed Vital Signs Not on file Plan of Treatment Date Type Specialty Care Team Description 04/09/2018 Office Visit Dermatology [facility] Health Maintenance Due Date Last Done Comments CERVICAL CANCER SCRN (3 2012 YRS) Results Not on fileafter 01/10/2017
--- OUTSIDE RECORDS SUMMARY | 2018-06-10 21:12 | XMS REPORT | Clinical Summary ---
Author Author [facility] Organization [facility] Address Unknown Phone Unavailable Care Team Providers Care Hired Hand Name Role Phone Nancy Herndon MD PCP Allergies No Known Allergies Current Medications Prescription Sig. Disp. Refills Start End Date Status Date triamcinolone (TRIDERM) Apply to affected area 2 80 g 0 01/12/20 Active 0.1 % topical times daily. 18 creamIndications: Rash and other nonspecific skin eruption ergocalciferol (VITAMIN Take 1 capsule by mouth 12 capsule 0 02/28/20 Active D2) 50,000 unit weekly For 3 months and 18 capsuleIndications: then buy vitamin D3: Vitamin D insufficiency 2000 units and take 1 tablet/day. Active Problems Problem Noted Date Overweight (BMI 25.0-29.9) 03/05/2018 Low TSH level 02/25/2018 Chronic gingivitis, plaque induced 02/20/2018 Rash and other nonspecific skin eruption 01/11/2018 Encounter for contraceptive management 01/11/2018 Blood in urine Vitamin D insufficiency Encounters Date Type Specialty Care Team Description 03/11/2018 Office Visit Dentistry Brittaney Gonzalez DDS Chronic gingivitis, plaque induced (Primary Dx) 03/09/2018 Telephone Family Practice Nancy Herndon MD Results (Needs lab appointment) 03/09/2018 Orders Only Family Practice Nancy Herndon MD Low TSH level (Primary Dx) 03/05/2018 Office Visit Family Nancy Thurman MD Low TSH level (Primary Dx); Other microscopic hematuria; Vitamin D insufficiency; Overweight (BMI 25.0-29.9); Hematuria, unspecified type; Health care maintenance 03/05/2018 Orders Only Family Nancy Thurman MD Overweight (BMI 25.0-29.9) 03/05/2018 Pharmacy Visit 02/27/2018 Pharmacy Visit 02/27/2018 Telephone Family Practice Nancy Herndon MD Results 02/27/2018 Orders Only Family Practice Nancy Herndon MD Vitamin D insufficiency (Primary Dx); Other microscopic hematuria 02/25/2018 Telephone Family Practice Nancy Herndon MD Results 02/25/2018 Orders Only Family Practice Nancy Herndon MD Low TSH level (Primary Dx) 02/20/2018 Office Visit Dentistry Brittaney Gonzalez DDS Impacted third molar tooth (Primary Dx); Chronic gingivitis 02/08/2018 Ancillary Radiology Health care maintenance Procedure 01/11/2018 Office Visit Family Nancy Thurman MD Health care maintenance (Primary Dx); Rash and other nonspecific skin eruption; Encounter for contraceptive management, unspecified type 01/11/2018 Pharmacy Visit after 04/08/2017 Family History Medical History Relation Name Comments [...] Care Team Description 04/09/2018 Office Visit Dermatology sent to 04/30/2018 OB crown buffer Ana Cristina Marcus, LUCIO [address] [place] [address] [phone] Nancy Benjamin MD [address] [place] [address] [phone] 05/27/2018 Office Visit Oral Surgery Ref#[id number] Health Maintenance Due Date Last Done Comments [...] procedure are in the results section. after 04/08/2017 Results * THYROID PEROXIDASE (TPO) AB (03/05/2018 8:38 AM) Thy Perox (TPO) Ab 16 LABORATORY Reference range: 0 to 34 CORPORATION OF Unit: IU/mL GEENA Performing Organization Address [facility] Phone Number [employer] OF [address] [place] [address] GEENA 145 * ANTITHYROGLOBULIN AB (03/05/2018 8:38 AM) Thyroglobulin Ab <1.0 LABORATORY Reference range: 0.0 to 0.9 CORPORATION OF Unit: IU/mL GEENA (note) Thyroglobulin Antibody measured by Adam Kurt Methodology Specimen Blood Performing Organization Address [facility] Phone Number [employer] OF [address] [place] [address] GEENA 145 * TSH (03/05/2018 8:38 AM) Only the most recent of 2 results within the time period is included. TSH 0.56 (L) 0.57 - 3.74 uIU/mL BT MAIN-STATION 1 Specimen Blood Performing Organization Address [facility] Phone Number [employer] BT MAIN-STATION 1 * TOTAL T3 (03/05/2018 8:38 AM) Total T3 73 (L) 87 - 178 ng/dL BT MAIN-STATION 1 Specimen Blood Performing Organization Address [facility] Phone Number ANDRESYS BT MAIN-STATION 1 * FTI (03/05/2018 8:38 AM) FTI 2.9 (L) 5.93 - 13.13 Index BT MAIN-STATION 1 T3 Uptake 42.7 32.0 - 48.4 % BT MAIN-STATION 1 Total T4 6.88 6.09 - 12.23 mcg/dL BT MAIN-STATION 1 Specimen Blood Performing Organization Address [facility] Phone Number REMA BT MAIN-STATION 1 * FREE T4 (03/05/2018 8:38 AM) Free T4 0.82 0.61 - 1.18 ng/dl BT MAIN-STATION 1 Comment: females: 1st Trimester-0.52-1.10 ng/dL 2nd Trimester=0.45-0.99 ng/dL 3rd Trimester=0.48-0.95 ng/dL Specimen Blood Performing Organization Address [facility] Phone Number [facility] * URINE CULTURE (02/25/2018 9:34 AM) Spec Description Urine [facility] Order Comments None [facility] Culture Resembles mixed uro-genital BT MICROBIOLOGY tigist Report Status Final 02/27/2018 BT MICROBIOLOGY Specimen Urine - URINE Performing Organization Address [facility] Phone Number [facility] BT MICROBIOLOGY * UA CHEMISTRIES (02/25/2018 9:33 AM) Color Straw BT MAIN-STATION 2 Clarity Clear BT MAIN-STATION 2 Spec [place] 1.004 1.001 - 1.035 BT MAIN-STATION 2 [...] MAIN-STATION 2 Specimen Urine Performing Organization Address [facility] Phone Number REMA BT MAIN-STATION 2 * VIT D, 25-HYDROXY (02/25/2018 9:32 AM) Vit D, 25-Hydroxy 22.6 (L) 30 - 100 ng/mL BT DIAGNOSTIC Comment: IMMUNOLOGY Vitamin D deficiency has been defined by the [place] of Medicine and Endocrine Society guideline as a level of serum 25-OH Vitamin D less than 20 ng/mL. The Endocrine Society further defines Vitamin D insufficiency as a level between 21 and 29 ng/mL and sufficiency as a level between 30 and 100 ng/mL. Performing Organization Address [facility] Phone Number MISYS BT DIAGNOSTIC IMMUNOLOGY * HEMOGLOBIN A1C (02/25/2018 9:32 AM) Hemoglobin A1c 5.3 4.3 - 6.1 % BT DIAGNOSTIC IMMUNOLOGY Est Average Gluc 105.4 mg/dL BT DIAGNOSTIC IMMUNOLOGY Performing Organization Address [facility] Phone Number MISYS BT DIAGNOSTIC IMMUNOLOGY * [...] MAIN-STATION 1 Specimen Blood Performing Organization Address [facility] Phone Number MISYS BT MAIN-STATION 1 * LIPID PROFILE (02/25/2018 9:32 AM) Cholesterol 169 mg/dL BT MAIN-STATION 1 Comment: REFERENCE RANGE: Desirable: <200 mg/dL Borderline: 200-240 mg/dL High Risk: >240 mg/dL Triglyceride 43 <150 mg/dL BT MAIN-STATION 1 Comment: REFERENCE RANGE: Normal: <150 mg/dL Borderline High: 150-199 mg/dL High: 200-499 mg/dL Very High: >ab=961 mg/dL HDL 57 mg/dL BT MAIN-STATION 1 Comment: Increased CHD risk: <40 mg/dL Decreased CHD risk: >60 mg/dL LDL 103 mg/dL BT MAIN-STATION 1 Comment: REFERENCE RANGE: Optimal: <100 mg/dL Near Optimal: 100-129 mg/dL Borderline High: 130-159 mg/dL High: 160-189 mg/dL Very High: >te=728 mg/dL Performing Organization Address [facility] Phone Number MISYS BT MAIN-STATION 1 * HIV-1/HIV-2 DIAGNOSTIC/SYMPTOMATIC (02/25/2018 9:32 AM) HIV-1/HIV-2 Negative NEG BT MAIN-STATION 3 Specimen Blood Performing Organization Address [facility] Phone Number MISYS BT MAIN-STATION 3 * HEPATITIS PANEL (02/25/2018 9:32 AM) HCV IgG Negative NEG BT MAIN-STATION 3 HBsAg Negative NEG BT MAIN-STATION 3 HAV, IgM Negative NEG BT MAIN-STATION 3 HBcAb, IgM Negative NEG BT MAIN-STATION 3 Specimen Blood Performing Organization Address [facility] Phone Number MISYS BT MAIN-STATION 3 * [...] K/uL BT MAIN-STATION 2 Performing Organization Address [facility] Phone Number MISYS BT MAIN-STATION 2 * [...] m2 BT MAIN-STATION 1 Performing Organization Address [facility] Phone Number MISYS BT MAIN-STATION 1 * [...] Organization Address City/State/Zipcode Phone Number SMS after 04/08/2017
--- OUTSIDE RECORDS SUMMARY | 2018-06-10 21:12 | XMS REPORT | Clinical Summary ---
Author Author [facility] Organization [facility] Address Unknown Phone Unavailable Care Team Providers Care Cold Roll Operator Name Role Phone Abdirashid Moore MD PCP [...] as needed 18 Impacted tooth for Pain. triamcinolone (TRIDERM) Apply to affected area 2 80 g 0 01/11/04/09/20 Discontin 0.1 % topical times daily. 18 [...] directions from 21 tablet 0 05/27/20 06/02/20 (MEDROL IQRA,) 4 mg dose dose pack and/or [...] Encounters Date Type Specialty Care Team Description 06/05/2018 Office Visit Oral Surgery Cruzito Tapia DDS Arrived 05/27/2018 Office Visit Oral Surgery Ramiro Connell DDS Encounter for dental examination (Primary Dx); Impacted tooth 05/15/2018 Office Visit Family Practice Brittaney Meza DDS Need for vaccination Nancy Herndon MD (Primary Dx); Well woman exam; Other microscopic hematuria; Overweight (BMI 25.0-29.9); Vitamin D insufficiency; Low TSH level; Yeast vaginitis; BV (bacterial vaginosis) 05/15/2018 Pharmacy Visit 04/20/2018 Telephone Family Practice Nancy Herndon MD Labs Only 04/09/2018 Office Visit Dermatology Lea Still MD Eczema, unspecified type (Primary Dx); Rash and other nonspecific skin eruption 04/09/2018 Pharmacy Visit 03/11/2018 Office Visit Dentistry Brittaney Meza DDS Chronic gingivitis, plaque induced (Primary Dx) 03/09/2018 Telephone Family Practice Nancy Herndon MD Results (Needs lab appointment) 03/09/2018 Orders Only [facility] Nancy Herndon MD Low TSH level (Primary Dx) 03/05/2018 Office Visit [facility] Nancy Herndon MD Low TSH level (Primary Dx); Other microscopic hematuria; Vitamin D insufficiency; Overweight (BMI 25.0-29.9); Hematuria, unspecified type; Health care maintenance 03/05/2018 Orders Only [facility] Nancy Herndon MD Overweight (BMI 25.0-29.9) 03/05/2018 Pharmacy Visit 02/27/2018 Pharmacy Visit 02/27/2018 Telephone [facility] Nancy Herndon MD Results 02/27/2018 Orders Only [facility] Nancy Herndon MD Vitamin D insufficiency (Primary Dx); Other microscopic hematuria 02/25/2018 Telephone [facility] Nancy Herndon MD Results 02/25/2018 Orders Only [facility] Nancy Herndon MD Low TSH level (Primary Dx) 02/20/2018 Office Visit Dentistry Brittaney Meza DDS Impacted third molar tooth (Primary Dx); Chronic gingivitis 02/08/2018 Ancillary Radiology Health care maintenance Procedure 01/11/2018 Office Visit [facility] Nancy Herndon MD Health care maintenance (Primary Dx); Rash and other nonspecific skin eruption; Encounter for contraceptive management, unspecified type 01/11/2018 Pharmacy Visit after 06/04/2017 Immunizations Name Dates Previously Given Next Due [...] Vital Sign Reading Time Taken Blood Pressure 132/82 05/27/2018 3:47 PM [facility] Pulse 80 05/27/2018 3:47 PM [facility] Temperature 37 C (98.6 F) 05/27/2018 3:47 PM [facility] Respiratory Rate 18 06/05/2018 10:48 AM [facility] Oxygen Saturation 100% 05/27/2018 3:47 PM [facility] Inhaled Oxygen - - Concentration Weight 63.5 kg (140 lb) 06/05/2018 10:48 AM [facility] Height 157.5 cm (5' 2") 06/05/2018 10:48 AM [facility] Body Mass Index 25.61 06/05/2018 10:48 AM [facility] Plan of Treatment Health Maintenance Due Date Last Done Comments Cervical Cancer Scrn (3 05/15/2021 05/15/2018 Yrs) IMM Influenza Seasonal Completed 05/15/2018Apr to September (>/=19 yrs) Procedures Procedure Name [...] procedure are in the results section. after 06/04/2017 Results * TEST (05/15/2018 2:00 PM) Negative [facility] Specimen Urine Performing Organization Address City/State/Zipcode Phone Number MISYS [facility] * URINE CULTURE (05/15/2018 2:00 PM) Only the most recent of 2 results within the time period is included. Spec Description Urine [facility] Order Comments None [facility] Culture Resembles mixed uro-genital BT MICROBIOLOGY tigist Report Status Final 05/17/2018 BT MICROBIOLOGY Specimen Urine - URINE Performing Organization Address [facility] Phone Number REMA [facility] BT MICROBIOLOGY * WET MOUNT (05/15/2018 1:59 PM) Spec Description Cervix [facility] Order Comments None [facility] Exam Clue cells present [facility] No Trichomonas seen Many WBC's seen Report Status Final 05/15/2018 [facility] Specimen Cervix - Vaginal Performing Organization Address [facility] Phone Number [facility] * GEE STAIN (05/15/2018 1:59 PM) Spec Description Cervix [facility] Order Comments Cervix [facility] Direct Exam Hyphae seen [facility] Report Status Final 05/15/2018 [facility] Specimen Cervix - Vaginal Performing Organization Address [facility] Phone Number [facility] * HPV [...] 58,59,66, and 68. CoPath Spec Number [id number] DIAGNOSTIC IMMUNOLOGY Performing Organization Address [facility] Phone Number REMA BT DIAGNOSTIC IMMUNOLOGY * [facility] CYTOLOGY (05/15/2018) [facility] Cytology (note) ANDRESYS Name ROQUE MEZA Date of 1990 Hospital Number [id number] Location [facility] (OP) CYTOPATHOLOGY Collected:05/15/2018 00:00 Received: 05/16/2018 09:53 [...] analyzed by the automated ThinPrep Imaging System, [facility], [place], [place]. Performing Organization Address [facility] Phone Number MISYS * TSH (04/30/2018 10:22 AM) Only the most recent of 3 results within the time period is included. TSH 0.73 0.57 - 3.74 uIU/mL BT MAIN-STATION 1 Specimen Blood Performing Organization Address [facility] Phone Number [employer] BT MAIN-STATION 1 * PROLACTIN (04/30/2018 10:22 AM) Prolactin 6.54 ng/mL BT MAIN-STATION 1 Comment: REFERENCE RANGE: Female: Non- 2.8 - 29.2 ng/mL 9.7 -208.5 ng/mL Postmenopausal 1.8 - 20.3 ng/mL Specimen Blood Performing Organization Address [facility] Phone Number [place] BT MAIN-STATION 1 * THYROID PEROXIDASE (TPO) AB (03/05/2018 8:38 AM) Thy Perox (TPO) Ab 16 LABORATORY Reference range: 0 to 34 CORPORATION OF Unit: IU/mL GEENA Performing Organization Address [facility] Phone Number [facility] LABORATORY CORPORATION OF [address] [place] [address] GEENA 145 * ANTITHYROGLOBULIN AB (03/05/2018 8:38 AM) Thyroglobulin Ab <1.0 LABORATORY Reference range: 0.0 to 0.9 CORPORATION OF Unit: IU/mL GEENA (note) Thyroglobulin Antibody measured by Adam Verona Methodology Specimen Blood Performing Organization Address [facility] Phone Number [facility] CORPOR[facility] OF [address] [place], [place] [id number] GEENA 145 * TOTAL T3 (03/05/2018 8:38 AM) Total T3 73 (L) 87 - 178 ng/dL BT MAIN-STATION 1 Specimen Blood Performing Organization Address [facility] Phone Number MISYS BT MAIN-STATION 1 * FTI (03/05/2018 8:38 AM) FTI 2.9 (L) 5.93 - 13.13 Index BT MAIN-STATION 1 T3 Uptake 42.7 32.0 - 48.4 % BT MAIN-STATION 1 Total T4 6.88 6.09 - 12.23 mcg/dL BT MAIN-STATION 1 Specimen Blood Performing Organization Address [facility] Phone Number MISYS BT MAIN-STATION 1 * FREE T4 (03/05/2018 8:38 AM) Free T4 0.82 0.61 - 1.18 ng/dl BT MAIN-STATION 1 Comment: females: 1st Trimester-0.52-1.10 ng/dL 2nd Trimester=0.45-0.99 ng/dL 3rd Trimester=0.48-0.95 ng/dL Specimen Blood Performing Organization Address [facility] Phone Number MISYS BT MAIN-STATION 1 * UA CHEMISTRIES (02/25/2018 9:33 AM) Color Straw BT MAIN-STATION 2 Clarity Clear BT MAIN-STATION 2 Spec [place] 1.004 1.001 - 1.035 BT MAIN-STATION 2 [...] MAIN-STATION 2 Specimen Urine Performing Organization Address [place]/[facility] Phone Number MISYS BT MAIN-STATION 2 * VIT D, 25-HYDROXY (02/25/2018 9:32 AM) Vit D, 25-Hydroxy 22.6 (L) 30 - 100 ng/mL BT DIAGNOSTIC Comment: IMMUNOLOGY Vitamin D deficiency has been defined by the [place] of Medicine and Endocrine Society guideline as a level of serum 25-OH Vitamin D less than 20 ng/mL. The Endocrine Society further defines Vitamin D insufficiency as a level between 21 and 29 ng/mL and sufficiency as a level between 30 and 100 ng/mL. Performing Organization Address [facility] Phone Number MISYS BT DIAGNOSTIC IMMUNOLOGY * HEMOGLOBIN A1C (02/25/2018 9:32 AM) Hemoglobin A1c 5.3 4.3 - 6.1 % BT DIAGNOSTIC IMMUNOLOGY Est Average Gluc 105.4 mg/dL BT DIAGNOSTIC IMMUNOLOGY Performing Organization Address [facility] Phone Number MISYS BT DIAGNOSTIC IMMUNOLOGY * [...] MAIN-STATION 1 Specimen Blood Performing Organization Address [facility] Phone Number MISYS BT MAIN-STATION 1 * LIPID PROFILE (02/25/2018 9:32 AM) Cholesterol 169 mg/dL BT MAIN-STATION 1 Comment: REFERENCE RANGE: Desirable: <200 mg/dL Borderline: 200-240 mg/dL High Risk: >240 mg/dL Triglyceride 43 <150 mg/dL BT MAIN-STATION 1 Comment: REFERENCE RANGE: Normal: <150 mg/dL Borderline High: 150-199 mg/dL High: 200-499 mg/dL Very High: >tf=290 mg/dL HDL 57 mg/dL BT MAIN-STATION 1 Comment: Increased CHD risk: <40 mg/dL Decreased CHD risk: >60 mg/dL LDL 103 mg/dL BT MAIN-STATION 1 Comment: REFERENCE RANGE: Optimal: <100 mg/dL Near Optimal: 100-129 mg/dL Borderline High: 130-159 mg/dL High: 160-189 mg/dL Very High: >we=500 mg/dL Performing Organization Address [facility] Phone Number MISYS BT MAIN-STATION 1 * HIV-1/HIV-2 DIAGNOSTIC/SYMPTOMATIC (02/25/2018 9:32 AM) HIV-1/HIV-2 Negative NEG BT MAIN-STATION 3 Specimen Blood Performing Organization Address [facility] Phone Number MISYS BT MAIN-STATION 3 * HEPATITIS PANEL (02/25/2018 9:32 AM) HCV IgG Negative NEG BT MAIN-STATION 3 HBsAg Negative NEG BT MAIN-STATION 3 HAV, IgM Negative NEG BT MAIN-STATION 3 HBcAb, IgM Negative NEG BT MAIN-STATION 3 Specimen Blood Performing Organization Address [facility] Phone Number MISYS BT MAIN-STATION [...] K/uL BT MAIN-STATION 2 Performing Organization Address [facility] Phone Number MISYS BT MAIN-STATION [...] m2 BT MAIN-STATION 1 Performing Organization Address [facility] Phone Number MISYS BT MAIN-STATION [...] PM Performing Organization Address City/State/Zipcode Phone Number [facility] after 06/04/2017
--- OUTSIDE RECORDS SUMMARY | 2018-06-10 21:13 | XMS REPORT | Clinical Summary ---
Author Author [facility] Organization [facility] Address Unknown Phone Unavailable Care Team Providers Care Automation Technician Name Role Phone Nancy Herndon MD PCP [...] Encounters Date Type Specialty Care Team Description 04/20/2018 Telephone Family Practice Nancy Herndon MD Labs Only 04/09/2018 Office Visit Dermatology Lea Still MD Eczema, unspecified type (Primary Dx); Rash and other nonspecific skin eruption 04/09/2018 Pharmacy Visit 03/11/2018 Office Visit Dentistry Brittaney Gonzalez DDS Chronic gingivitis, plaque induced (Primary Dx) 03/09/2018 Telephone [facility] Nancy Herndon MD Results (Needs lab appointment) 03/09/2018 Orders Only [facility] Nancy Herndon MD Low TSH level (Primary Dx) 03/05/2018 Office Visit Family Practice Nancy Herndon MD Low TSH level (Primary Dx); Other microscopic hematuria; Vitamin D insufficiency; Overweight (BMI 25.0-29.9); Hematuria, unspecified type; Health care maintenance 03/05/2018 Orders Only [facility] Nancy Herndon MD Overweight (BMI 25.0-29.9) 03/05/2018 Pharmacy Visit 02/27/2018 Pharmacy Visit 02/27/2018 Telephone [facility] Nancy Herndon MD Results 02/27/2018 Orders Only [facility] Nancy Herndon MD Vitamin D insufficiency (Primary Dx); Other microscopic hematuria 02/25/2018 Telephone [facility] Nancy Herndon MD Results 02/25/2018 Orders Only [facility] Nancy Herndon MD Low TSH level (Primary Dx) 02/20/2018 Office Visit Dentistry Brittaney Gonzalez DDS Impacted third molar tooth (Primary Dx); Chronic gingivitis 02/08/2018 Ancillary Radiology Health care maintenance Procedure 01/11/2018 Office Visit [facility] Nancy Herndon MD Health care maintenance (Primary Dx); Rash and other nonspecific skin eruption; Encounter for contraceptive management, unspecified type 01/11/2018 Pharmacy Visit after 05/14/2017 Family History Medical History Relation Name Comments [...] Treatment Date Type Specialty Care Team Description 05/27/2018 Office Visit Oral Surgery Ref#[id number] Health Maintenance Due Date Last Done Comments Cervical Cancer Scrn (3 2012 Yrs) IMM Influenza Seasonal 04/15/2018Apr to September (>/=19 yrs) Procedures Procedure Name Priority Date/Time Associated Diagnosis Comments PROLACTIN Routine 04/30/2018 Low TSH level Results [...] procedure are in the results section. after 05/14/2017 Results * TSH (04/30/2018 10:22 AM) Only the most recent of 3 results within the time period is included. TSH 0.73 0.57 - 3.74 uIU/mL BT MAIN-STATION 1 Specimen Blood Performing Organization Address [facility] [place] Phone Number [employer] BT MAIN-STATION 1 * PROLACTIN (04/30/2018 10:22 AM) Prolactin 6.54 ng/mL BT MAIN-STATION 1 Comment: REFERENCE RANGE: Female: Non- 2.8 - 29.2 ng/mL 9.7 -208.5 ng/mL Postmenopausal 1.8 - 20.3 ng/mL Specimen Blood Performing Organization Address [facility] [place] Phone Number [employer] BT MAIN-STATION 1 * THYROID PEROXIDASE (TPO) AB (03/05/2018 8:38 AM) Thy Perox (TPO) Ab 16 LABORATORY Reference range: 0 to 34 CORPORATION OF Unit: IU/mL GEENA Performing Organization Address City/[facility] [place] Phone Number [employer] LABORATORY CORPORATION OF [address] [place] [address] GEENA 145 * ANTITHYROGLOBULIN AB (03/05/2018 8:38 AM) Thyroglobulin Ab <1.0 LABORATORY Reference range: 0.0 to 0.9 CORPORATION OF Unit: IU/mL GEENA (note) Thyroglobulin Antibody measured by Adam Kurt Methodology Specimen Blood Performing Organization Address [facility] [place] Phone Number [employer] [facility] COR[facility] OF [address] [place] [address] [facility] 145 * TOTAL T3 (03/05/2018 8:38 AM) Total T3 73 (L) 87 - 178 ng/dL BT MAIN-STATION 1 Specimen Blood Performing Organization Address [facility] [place] Phone Number [facility] BT MAIN-STATION 1 * FTI (03/05/2018 8:38 AM) FTI 2.9 (L) 5.93 - 13.13 Index BT MAIN-STATION 1 T3 Uptake 42.7 32.0 - 48.4 % BT MAIN-STATION 1 Total T4 6.88 6.09 - 12.23 mcg/dL BT MAIN-STATION 1 Specimen Blood Performing Organization Address [facility] [place] Phone Number [facility] BT MAIN-STATION 1 * FREE T4 (03/05/2018 8:38 AM) Free T4 0.82 0.61 - 1.18 ng/dl BT MAIN-STATION 1 Comment: females: 1st Trimester-0.52-1.10 ng/dL 2nd Trimester=0.45-0.99 ng/dL 3rd Trimester=0.48-0.95 ng/dL Specimen Blood Performing Organization Address [facility] [place] [facility] Phone Number [employer] BT MAIN-STATION 1 * URINE CULTURE (02/25/2018 9:34 AM) Spec Description Urine [facility] Order Comments None [facility] Culture Resembles mixed uro-genital BT MICROBIOLOGY tigist Report Status Final 02/27/2018 BT MICROBIOLOGY Specimen Urine - URINE Performing Organization Address [facility] [place] [facility] Phone Number [employer] [facility] BT MICROBIOLOGY * UA CHEMISTRIES (02/25/2018 9:33 AM) Color Straw BT MAIN-STATION 2 Clarity Clear BT MAIN-STATION 2 Spec [place] 1.004 1.001 - 1.035 BT MAIN-STATION 2 [...] MAIN-STATION 2 Specimen Urine Performing Organization Address [facility] [place] Phone Number [facility]ISYS BT MAIN-STATION 2 * VIT D, 25-HYDROXY (02/25/2018 9:32 AM) Vit D, 25-Hydroxy 22.6 (L) 30 - 100 ng/mL BT DIAGNOSTIC Comment: IMMUNOLOGY Vitamin D deficiency has been defined by the [place] of Medicine and Endocrine Society guideline as a level of serum 25-OH Vitamin D less than 20 ng/mL. The Endocrine Society further defines Vitamin D insufficiency as a level between 21 and 29 ng/mL and sufficiency as a level between 30 and 100 ng/mL. Performing Organization Address [facility] Phone Number MISYS BT DIAGNOSTIC IMMUNOLOGY * HEMOGLOBIN A1C (02/25/2018 9:32 AM) Hemoglobin A1c 5.3 4.3 - 6.1 % BT DIAGNOSTIC IMMUNOLOGY Est Average Gluc 105.4 mg/dL BT DIAGNOSTIC IMMUNOLOGY Performing Organization Address [facility] Phone Number MISYS BT DIAGNOSTIC IMMUNOLOGY * [...] Specimen Blood Performing Organization Address [facility] [place] Phone Number MISYS MAIN-STATION 1 * LIPID PROFILE (02/25/2018 9:32 AM) Cholesterol 169 mg/dL BT MAIN-STATION 1 Comment: REFERENCE RANGE: Desirable: <200 mg/dL Borderline: 200-240 mg/dL High Risk: >240 mg/dL Triglyceride 43 <150 mg/dL BT MAIN-STATION 1 Comment: REFERENCE RANGE: Normal: <150 mg/dL Borderline High: 150-199 mg/dL High: 200-499 mg/dL Very High: >eo=501 mg/dL HDL 57 mg/dL BT MAIN-STATION 1 Comment: Increased CHD risk: <40 mg/dL Decreased CHD risk: >60 mg/dL LDL 103 mg/dL BT MAIN-STATION 1 Comment: REFERENCE RANGE: Optimal: <100 mg/dL Near Optimal: 100-129 mg/dL Borderline High: 130-159 mg/dL High: 160-189 mg/dL Very High: >nw=204 mg/dL Performing Organization Address [facility] [place] Phone Number MISYS MAIN-STATION 1 * HIV-1/HIV-2 DIAGNOSTIC/SYMPTOMATIC (02/25/2018 9:32 AM) HIV-1/HIV-2 Negative NEG MAIN-STATION 3 Specimen Blood Performing Organization Address [facility] [place] Phone Number MISYS MAIN-STATION 3 * HEPATITIS PANEL (02/25/2018 9:32 AM) HCV IgG Negative NEG BT MAIN-STATION 3 HBsAg Negative NEG BT MAIN-STATION 3 HAV, IgM Negative NEG BT MAIN-STATION 3 HBcAb, IgM Negative NEG MAIN-STATION 3 Specimen Blood Performing Organization Address [facility] [place] Phone Number MISYS BT MAIN-STATION 3 * [...] K/uL BT MAIN-STATION 2 Performing Organization Address City/State/Zipcode Phone Number MISYS BT MAIN-STATION 2 * [...] m2 BT MAIN-STATION 1 Performing Organization Address City/State/Zipcode Phone Number MISYS BT MAIN-STATION 1 * [...] PM Performing Organization Address City/State/Zipcode Phone Number [facility] after 05/14/2017
--- OUTSIDE RECORDS SUMMARY | 2018-06-10 21:13 | XMS REPORT | Clinical Summary ---
Author Author [facility] Organization [facility] Address Unknown Phone Unavailable Care Team Providers Care Bottle Filler Name Role Phone Nancy Herndon MD PCP [...] gingivitis, plaque induced (Primary Dx) 03/09/2018 Telephone [facility] Nancy Herndon MD Results (Needs lab appointment) 03/09/2018 Orders Only [facility] Nancy Herndon MD Low TSH level (Primary Dx) 03/05/2018 Office Visit Family Practice Nancy Herndon MD Low TSH level (Primary Dx); Other microscopic hematuria; Vitamin D insufficiency; Overweight (BMI 25.0-29.9); Hematuria, unspecified type; Health care maintenance 03/05/2018 Orders Only [facility] Nancy Herndon MD Overweight (BMI 25.0-29.9) 03/05/2018 Pharmacy Visit 02/27/2018 Pharmacy Visit 02/27/2018 Telephone [facility] Nancy Herndon MD Results 02/27/2018 Orders Only [facility] Nancy Herndon MD Vitamin D insufficiency (Primary Dx); Other microscopic hematuria 02/25/2018 Telephone [facility] Nancy Herndon MD Results 02/25/2018 Orders Only [facility] Nancy Herndon MD Low TSH level (Primary Dx) 02/20/2018 Office Visit Dentistry Brittaney Gonzalez DDS Impacted third molar tooth (Primary Dx); Chronic gingivitis 02/08/2018 Ancillary Radiology Health care maintenance Procedure 01/11/2018 Office Visit [facility] Nancy Herndon MD Health care maintenance (Primary Dx); Rash and other nonspecific skin eruption; Encounter for contraceptive management, unspecified type 01/11/2018 Pharmacy Visit after 04/21/2017 Family History Medical History Relation Name Comments [...] Type Specialty Care Team Description 04/30/2018 OB paper feeder Ana Cristina Marcus NP [address] [place] [address] [phone] Nancy Benjamin MD [address] [place] [address] [phone] 04/30/2018 Lab Appointment Lab Nancy Herndon MD [address] [place] [address] [phone] 05/27/2018 Office Visit Oral Surgery Ref#[id number] Health Maintenance Due Date Last Done Comments [...] procedure are in the results section. after 04/21/2017 Results * THYROID PEROXIDASE (TPO) AB (03/05/2018 8:38 AM) Thy Perox (TPO) Ab 16 LABORATORY Reference range: 0 to 34 CORPORATION OF Unit: IU/mL GEENA Performing Organization Address City/State/Zipcode Phone Number [facility] OF [address] [facility] [place] [address] GEENA 145 * ANTITHYROGLOBULIN AB (03/05/2018 8:38 AM) Thyroglobulin Ab <1.0 LABORATORY Reference range: 0.0 to 0.9 CORPORATION OF Unit: IU/mL GEENA (note) Thyroglobulin Antibody measured by Adam Browning Methodology Specimen Blood Performing Organization Address [facility] Phone Number [employer] [facility]POR[facility] OF [address] [place] [address] GEENA 145 * TSH (03/05/2018 8:38 AM) Only the most recent of 2 results within the time period is included. TSH 0.56 (L) 0.57 - 3.74 uIU/mL BT MAIN-STATION 1 Specimen Blood Performing Organization Address [facility] Phone Number [employer] BT MAIN-STATION 1 * TOTAL T3 (03/05/2018 8:38 AM) Total T3 73 (L) 87 - 178 ng/dL BT MAIN-STATION 1 Specimen Blood Performing Organization Address [facility] Phone Number [employer] BT MAIN-STATION 1 * FTI (03/05/2018 8:38 AM) FTI 2.9 (L) 5.93 - 13.13 Index BT MAIN-STATION 1 T3 Uptake 42.7 32.0 - 48.4 % BT MAIN-STATION 1 Total T4 6.88 6.09 - 12.23 mcg/dL BT MAIN-STATION 1 Specimen Blood Performing Organization Address [facility] Phone Number [employer] BT MAIN-STATION 1 * FREE T4 (03/05/2018 8:38 AM) Free T4 0.82 0.61 - 1.18 ng/dl BT MAIN-STATION 1 Comment: females: 1st Trimester-0.52-1.10 ng/dL 2nd Trimester=0.45-0.99 ng/dL 3rd Trimester=0.48-0.95 ng/dL Specimen Blood Performing Organization Address [facility] Phone Number [employer] BT MAIN-STATION 1 * URINE CULTURE (02/25/2018 9:34 AM) Spec Description Urine [facility] Order Comments None [facility] Culture Resembles mixed uro-genital BT MICROBIOLOGY tigist Report Status Final 02/27/2018 BT MICROBIOLOGY Specimen Urine - URINE Performing Organization Address [facility] Phone Number [employer] [facility] BT MICROBIOLOGY * UA CHEMISTRIES (02/25/2018 9:33 AM) Color Straw BT MAIN-STATION 2 Clarity Clear BT MAIN-STATION 2 Spec [place] 1.004 1.001 - 1.035 BT MAIN-STATION 2 [...] MAIN-STATION 2 Specimen Urine Performing Organization Address City/[facility] Phone Number MISYS BT MAIN-STATION 2 * VIT D, 25-HYDROXY (02/25/2018 9:32 AM) Vit D, 25-Hydroxy 22.6 (L) 30 - 100 ng/mL BT DIAGNOSTIC Comment: IMMUNOLOGY Vitamin D deficiency has been defined by the [place] of Medicine and Endocrine Society guideline as a level of serum 25-OH Vitamin D less than 20 ng/mL. The Endocrine Society further defines Vitamin D insufficiency as a level between 21 and 29 ng/mL and sufficiency as a level between 30 and 100 ng/mL. Performing Organization Address [facility] Phone Number [facility]ISYS BT DIAGNOSTIC IMMUNOLOGY * HEMOGLOBIN A1C (02/25/2018 9:32 AM) Hemoglobin A1c 5.3 4.3 - 6.1 % BT DIAGNOSTIC IMMUNOLOGY Est Average Gluc 105.4 mg/dL BT DIAGNOSTIC IMMUNOLOGY Performing Organization Address [facility] Phone Number [facility]ISYS BT DIAGNOSTIC IMMUNOLOGY * [...] Specimen Blood Performing Organization Address [facility] Phone Number MISYS MAIN-STATION 1 * LIPID PROFILE (02/25/2018 9:32 AM) Cholesterol 169 mg/dL BT MAIN-STATION 1 Comment: REFERENCE RANGE: Desirable: <200 mg/dL Borderline: 200-240 mg/dL High Risk: >240 mg/dL Triglyceride 43 <150 mg/dL BT MAIN-STATION 1 Comment: REFERENCE RANGE: Normal: <150 mg/dL Borderline High: 150-199 mg/dL High: 200-499 mg/dL Very High: >hs=372 mg/dL HDL 57 mg/dL BT MAIN-STATION 1 Comment: Increased CHD risk: <40 mg/dL Decreased CHD risk: >60 mg/dL LDL 103 mg/dL BT MAIN-STATION 1 Comment: REFERENCE RANGE: Optimal: <100 mg/dL Near Optimal: 100-129 mg/dL Borderline High: 130-159 mg/dL High: 160-189 mg/dL Very High: >sa=850 mg/dL Performing Organization Address [facility] Phone Number MISYS MAIN-STATION 1 * HIV-1/HIV-2 DIAGNOSTIC/SYMPTOMATIC (02/25/2018 9:32 AM) HIV-1/HIV-2 Negative NEG MAIN-STATION 3 Specimen Blood Performing Organization Address [facility] Phone Number MISYS MAIN-STATION 3 * HEPATITIS PANEL (02/25/2018 9:32 AM) HCV IgG Negative NEG MAIN-STATION 3 HBsAg Negative NEG MAIN-STATION 3 HAV, IgM Negative NEG MAIN-STATION 3 HBcAb, IgM Negative NEG MAIN-STATION 3 Specimen Blood Performing Organization Address [facility] Phone Number MISYS MAIN-STATION 3 * CBC/DIFF (02/25/2018 9:32 AM) [...] Organization Address City/State/Zipcode Phone Number SMS after 04/21/2017
--- OUTSIDE RECORDS SUMMARY | 2018-06-10 21:13 | XMS REPORT | Clinical Summary ---
Author Author [facility] Organization [facility] Address Unknown Phone Unavailable Care Team Providers Care Liquor Inspector Name Role Phone Abdirashid Moore MD PCP [...] bedtime for 7 days for vaginitis yeast. Active Problems Problem Noted Date Yeast vaginitis 05/15/2018 BV (bacterial vaginosis) 05/15/2018 Overweight (BMI 25.0-29.9) 03/05/2018 Low TSH level 02/25/2018 Chronic gingivitis, plaque induced 02/20/2018 Rash and other nonspecific skin eruption 01/11/2018 Encounter for contraceptive management 01/11/2018 Blood in urine Vitamin D insufficiency Encounters Date Type Specialty Care Team Description 05/15/2018 Office Visit Family Practice Brittaney Meza [...] plaque induced (Primary Dx) 03/09/2018 Telephone Family Nancy Thurman MD Results (Needs lab appointment) 03/09/2018 Orders Only Family Nancy Thurman MD Low TSH level (Primary Dx) 03/05/2018 Office Visit Family Nancy Thurman MD Low TSH level (Primary Dx); Other microscopic hematuria; Vitamin D insufficiency; Overweight (BMI 25.0-29.9); Hematuria, unspecified type; Health care maintenance 03/05/2018 Orders Only Nancy Stearns MD Overweight (BMI 25.0-29.9) 03/05/2018 Pharmacy Visit 02/27/2018 Pharmacy Visit 02/27/2018 Telephone Nancy Stearns MD Results 02/27/2018 Orders Only Nancy Stearns MD Vitamin D insufficiency (Primary Dx); Other microscopic hematuria 02/25/2018 Telephone Nancy Stearns MD Results 02/25/2018 Orders Only Nancy Stearns MD Low TSH level (Primary Dx) 02/20/2018 Office Visit Dentistry Brittaney Meza DDS Impacted third molar tooth (Primary Dx); Chronic gingivitis 02/08/2018 Ancillary Radiology Health care maintenance Procedure 01/11/2018 Office Visit Family Practice Nancy Herndon MD Health care maintenance (Primary Dx); Rash and other nonspecific skin eruption; Encounter for contraceptive management, unspecified type 01/11/2018 Pharmacy Visit after 05/26/2017 Immunizations Name Dates Previously Given Next Due [...] Vital Sign Reading Time Taken Blood Pressure 94/55 05/15/2018 1:21 PM CDT Pulse 83 05/15/2018 1:21 PM CDT Temperature 36.7 C (98 F) 05/15/2018 1:21 PM CDT Respiratory Rate 20 05/15/2018 1:21 PM CDT Oxygen Saturation - - Inhaled Oxygen - - Concentration Weight 64.3 kg (141 lb 12.8 oz) 05/15/2018 1:21 PM CDT Height 157.5 cm (5' 2") 05/15/2018 1:21 PM CDT Body Mass Index 25.94 05/15/2018 1:21 PM CDT Plan of Treatment Date Type Specialty Care Team Description 05/27/2018 Office Visit Oral Surgery Ramiro Connell DDS Ref#[id number] [facility] [address] [place] [address] [phone] Health Maintenance Due Date Last Done Comments [...] procedure are in the results section. after 05/26/2017 Results * TEST (05/15/2018 2:00 PM) Negative [facility] Specimen Urine Performing Organization Address [facility] [place] [facility] Phone Number [facility] * URINE CULTURE (05/15/2018 2:00 PM) Only the most recent of 2 results within the time period is included. Spec Description Urine [facility] Order Comments None [facility] Culture Resembles mixed uro-genital [facility] tigist Report Status Final 05/17/2018 [facility] MICRO[facility]OLOGY Specimen Urine - URINE Performing Organization Address [facility] [place] [facility] Phone Number [facility] BT MICROBIOLOGY * WET MOUNT (05/15/2018 1:59 PM) Spec Description Cervix [facility] Order Comments None [facility] Exam Clue cells present [facility] No Trichomonas seen Many WBC's seen Report Status Final 05/15/2018 [facility] Specimen Cervix - Vaginal Performing Organization Address [facility] [place] Phone Number [facility] * GEE STAIN (05/15/2018 1:59 PM) Spec Description Cervix [facility] Order Comments Cervix [facility] Direct Exam Hyphae seen [facility] Report Status Final 05/15/2018 [facility] Specimen Cervix - Vaginal Performing Organization Address [facility] [place] [facility] Phone Number [facility] * HPV [...] 58,59,66, and 68. CoPath Spec Number [id number] BT DIAGNOSTIC IMMUNOLOGY Performing Organization Address [facility] [place] [facility] Phone Number [facility] * [facility] CYTOLOGY (05/15/2018) [facility] Cytology (note) ANDRESYS Name ROQUE MEZA Date of 1990 Hospital Number [id number] Location [facility] (OP) CYTOPATHOLOGY Collected:05/15/2018 00:00 Received: 05/16/2018 09:53 [...] analyzed by the automated [employer] System, [employer], [place], [place]. Performing Organization Address [facility] [place] Phone Number [facility] * TSH (04/30/2018 10:22 AM) Only the most recent of 3 results within the time period is included. TSH 0.73 0.57 - 3.74 uIU/mL BT MAIN-STATION 1 Specimen Blood Performing Organization Address [facility] [place] [facility] Phone Number [facility] BT MAIN-STATION 1 * PROLACTIN (04/30/2018 10:22 AM) Prolactin 6.54 ng/mL BT MAIN-STATION 1 Comment: REFERENCE RANGE: Female: Non- 2.8 - 29.2 ng/mL 9.7 -208.5 ng/mL Postmenopausal 1.8 - 20.3 ng/mL Specimen Blood Performing Organization Address [facility] Phone Number [employer] BT MAIN-STATION 1 * THYROID PEROXIDASE (TPO) AB (03/05/2018 8:38 AM) Thy Perox (TPO) Ab 16 LABORATORY Reference range: 0 to 34 CORPORATION OF Unit: IU/mL GEENA Performing Organization Address [facility] [place] [facility] Phone Number [employer] [facility]POR[facility] OF [address] [place] [address] GEENA 145 * ANTITHYROGLOBULIN AB (03/05/2018 8:38 AM) Thyroglobulin Ab <1.0 LABORATORY Reference range: 0.0 to 0.9 CORPORATION OF Unit: IU/mL GEENA (note) Thyroglobulin Antibody measured by Adam Kurt Methodology Specimen Blood Performing Organization Address [facility] [place] Phone Number [employer] [facility] [address] [place] [address] GEENA 145 * TOTAL T3 (03/05/2018 8:38 AM) Total T3 73 (L) 87 - 178 ng/dL BT MAIN-STATION 1 Specimen Blood Performing Organization Address [facility] [place] Phone Number [employer] BT MAIN-STATION 1 * FTI (03/05/2018 8:38 AM) FTI 2.9 (L) 5.93 - 13.13 Index BT MAIN-STATION 1 T3 Uptake 42.7 32.0 - 48.4 % BT MAIN-STATION 1 Total T4 6.88 6.09 - 12.23 mcg/dL BT MAIN-STATION 1 Specimen Blood Performing Organization Address [facility] [place] Phone Number [employer] BT MAIN-STATION 1 * FREE T4 (03/05/2018 8:38 AM) Free T4 0.82 0.61 - 1.18 ng/dl BT MAIN-STATION 1 Comment: females: 1st Trimester-0.52-1.10 ng/dL 2nd Trimester=0.45-0.99 ng/dL 3rd Trimester=0.48-0.95 ng/dL Specimen Blood Performing Organization Address [facility] Phone Number [facility] BT MAIN-STATION 1 * UA CHEMISTRIES (02/25/2018 9:33 AM) Color Straw BT MAIN-STATION 2 Clarity Clear BT MAIN-STATION 2 Spec [place] 1.004 1.001 - 1.035 BT MAIN-STATION 2 [...] MAIN-STATION 2 Specimen Urine Performing Organization Address [facility] [place] Phone Number [facility]IS[facility] BT MAIN-STATION 2 * VIT D, 25-HYDROXY (02/25/2018 9:32 AM) Vit D, 25-Hydroxy 22.6 (L) 30 - 100 ng/mL BT DIAGNOSTIC Comment: IMMUNOLOGY Vitamin D deficiency has been defined by the [place] [employer] and End[employer] Society guideline as a level of serum 25-OH Vitamin D less than 20 ng/mL. The Endocrine Society further defines Vitamin D insufficiency as a level between 21 and 29 ng/mL and sufficiency as a level between 30 and 100 ng/mL. Performing Organization Address [facility] Phone Number [facility] BT DIAGNOSTIC IMMUNOLOGY * HEMOGLOBIN A1C (02/25/2018 9:32 AM) Hemoglobin A1c 5.3 4.3 - 6.1 % BT DIAGNOSTIC IMMUNOLOGY Est Average Gluc 105.4 mg/dL BT DIAGNOSTIC IMMUNOLOGY Performing Organization Address [facility] [place] [facility] Phone Number [facility] BT DIAGNOSTIC IMMUNOLOGY * [...] 1 ALT 18 7 - 52 U/L MAIN-STATION 1 D Bilirubin 0.2 0.0 - 0.2 mg/dL BT MAIN-STATION 1 Specimen Blood Performing Organization Address [facility] [place] [facility] Phone Number [facility] MAIN-STATION 1 * LIPID PROFILE (02/25/2018 9:32 AM) Cholesterol 169 mg/dL MAIN-STATION 1 Comment: REFERENCE RANGE: Desirable: <200 mg/dL Borderline: 200-240 mg/dL High Risk: >240 mg/dL Triglyceride 43 <150 mg/dL BT MAIN-STATION 1 Comment: REFERENCE RANGE: Normal: <150 mg/dL Borderline High: 150-199 mg/dL High: 200-499 mg/dL Very High: >ev=866 mg/dL HDL 57 mg/dL BT MAIN-STATION 1 Comment: Increased CHD risk: <40 mg/dL Decreased CHD risk: >60 mg/dL LDL 103 mg/dL MAIN-STATION 1 Comment: REFERENCE RANGE: Optimal: <100 mg/dL Near Optimal: 100-129 mg/dL Borderline High: 130-159 mg/dL High: 160-189 mg/dL Very High: >fs=608 mg/dL Performing Organization Address [facility] [place] Phone Number [facility] MAIN-STATION 1 * HIV-1/HIV-2 DIAGNOSTIC/SYMPTOMATIC (02/25/2018 9:32 AM) HIV-1/HIV-2 Negative NEG MAIN-STATION 3 Specimen Blood Performing Organization Address [facility] [place] [facility] Phone Number [facility] MAIN-STATION 3 * HEPATITIS PANEL (02/25/2018 9:32 AM) HCV IgG Negative NEG BT MAIN-STATION 3 HBsAg Negative NEG BT MAIN-STATION 3 HAV, IgM Negative NEG MAIN-STATION 3 HBcAb, IgM Negative NEG MAIN-STATION 3 Specimen Blood Performing Organization Address [facility] [place] [facility] Phone Number [facility] MAIN-STATION 3 * CBC/DIFF [...] PM Performing Organization Address City/State/Zipcode Phone Number [facility] after 05/26/2017
--- OUTSIDE RECORDS SUMMARY | 2018-06-10 21:13 | XMS REPORT ---
[facility] Address Unknown Phone Unavailable Care Team Providers Care E/M Engineer Name Role Phone Unavailable Unavailable Problems This patient has no known problems. Allergies, Adverse Reactions, Alerts This patient has no known allergies or adverse reactions. Medications This patient has no known medications. Encounters Start Date/Time End Date/Time Encounter Type Admission Type Attending [facility] Facility Care Department Encounter ID 2018-06-10 10:49:52 2018-06-10 10:49:52 Outpatient [facility] [id number] 2018-06-05 10:48:36 2018-06-05 10:48:36 Outpatient [facility] [id number] 2018-05-27 13:17:27 2018-05-27 13:17:27 Outpatient [facility] [id number] 2018-05-15 13:21:37 2018-05-15 13:21:37 Outpatient [facility] [id number] 2018-04-30 10:28:15 2018-04-30 10:28:15 Outpatient [facility] [id number] 2018-04-30 00:00:00 2018-04-30 00:00:00 Outpatient [facility] [id number] 2018-04-09 13:35:28 2018-04-09 13:35:28 Outpatient [facility] [id number] 2018-03-28 00:00:00 2018-03-28 00:00:00 Outpatient [facility] [id number] 2018-03-11 13:10:49 2018-03-11 13:10:49 Outpatient [facility] [id number] 2018-03-05 08:33:26 2018-03-05 08:33:26 Outpatient [facility] [id number] 2018-03-05 08:27:05 2018-03-05 08:27:05 Outpatient [facility] [id number] 2018-02-28 00:00:00 2018-02-28 00:00:00 Outpatient [facility] [id number] 2018-02-27 00:00:00 2018-02-27 00:00:00 Outpatient [facility] [id number] 2018-02-25 09:33:36 2018-02-25 09:33:36 Outpatient [facility] [id number] 2018-02-25 00:00:00 2018-02-25 00:00:00 Outpatient [facility] [id number] 2018-02-20 16:21:05 2018-02-20 16:21:05 Outpatient [facility] [id number] 2018-02-08 14:02:13 2018-02-08 14:02:13 Outpatient [facility] [id number] 2018-01-11 14:54:08 2018-01-11 14:54:08 Outpatient [facility] [id number] 2017-01-29 00:00:00 2017-02-02 00:00:00 Outpatient [facility] [id number]
[2018-06-10] MEDS ORDERED: ONDANSETRON HCL 4 MG ORAL DISINTEGRATING TAB PO ONE (22:30)
[2018-06-10 23:38] LABS: CLARITY,URINE CLEAR (CLEAR); COLOR,URINE YELLOW (YELLOW); LEUKOCYTE ESTERASE ,URINE NEGATIVE (NEGATIVE); NITRITE,URINE NEGATIVE (NEGATIVE); PROTEIN,URINE DIPSTICK NEGATIVE (NEGATIVE)
[2018-06-10 23:39] LABS: BILIRUBIN,URINE NEGATIVE (NEGATIVE); KETONES,URINE 2+ (NEGATIVE); URINE UROBILINOGEN 0.2 mg/dL (0.2 - 1)
[2018-06-10 23:48] LABS: BACTERIA,URINE FEW /HPF; EPITHELIAL CELLS,URINE FEW /LPF; RBC,URINE 0-5 /HPF (0-5); WBC,URINE (MAN) 0-5 /HPF (0-5)
[2018-06-10 23:56] LABS: PREGNANCY TEST, URINE NEGATIVE (NEGATIVE)
[2018-06-11 00:43] VITALS: BP 121/82
== END 2018-06-11 01:17 | disposition home or self-care (01) ==
LOC: ER 21:08
DX: R11.2 Nausea with vomiting, unspecified (principal); R19.7 Diarrhea, unspecified; R10.9 Unspecified abdominal pain; F17.210 Nicotine dependence, cigarettes, uncomplicated
CPT/HCPCS: 81001; 81025; 87086; 99283; Q0162